=== PATIENT | female | born 1945 | race Caucasian/White ===

== ENCOUNTER → 2016-10-08 | Outpatient (REF) | payer MEDICARE ==
[~2016-10-08] MED LIST: /WARF25TA; /WARF25TA PO; ACET65TA PO; ADVI200T PO; ATEN50TA2 PO; COQ1200C2 PO; ENBR50IN4 SC; FOLI1TAB86 PO; FOSA70TA PO; GLUC500C4 PO; GLUCTAB64 PO; METH2.5T PO; MULTIVITAMIN/IRON PO; PERC5TAB8; ULTR50TA PO
[2016-10-08 19:57] LABS: INR 2.66
== END ==
LOC: M LABDRAWC 16:30
PROVIDERS: ATTEND Physician Assistant
DX: Z51.81 Encounter for therapeutic drug level monitoring (principal); Z79.01 Long term (current) use of anticoagulants; I48.0 Paroxysmal atrial fibrillation

== ENCOUNTER → 2016-11-08 | Outpatient (REF) | payer MEDICARE ==
[2016-11-08 11:56] LABS: INR 3.17
== END ==
LOC: M LABDRAWC 11:33
PROVIDERS: ATTEND Physician Assistant
DX: Z51.81 Encounter for therapeutic drug level monitoring (principal); Z79.01 Long term (current) use of anticoagulants; I48.0 Paroxysmal atrial fibrillation

== ENCOUNTER → 2016-11-08 | Outpatient (REF) | payer MEDICARE ==
[2016-11-08 11:52] LABS: BASO % 0.3 % (0.0-1.0); EOS # 0.3 K/mm3 (0.0-0.50); EOS % 2.7 % (0.0-3.0); LARGE UNSTAINED CELL # 0.3 K/mm3 (0.0-0.4); LARGE UNSTAINED CELL % 2.6 % (0.0-4.0); LYMPH # 1.5 K/mm3 (1.5-4.5); MEAN CORPUSCULAR HEMOGLOBIN 30.9 pg (27.0-33.0); MEAN CORPUSCULAR HGB CONC 31.5 g/dl (32.0-36.5); MONO # 0.5 K/mm3 (0.0-0.8); MONO % 4.7 % (0.0-5.0); NEUTROPHILS # 7.6 K/mm3 (1.8-7.7); NEUTROPHILS % 74.7 % (36.0-66.0); PLATELET COUNT, AUTOMATED 254 k/mm3 (150-450); RED CELL DISTRIBUTION WIDTH 12.7 % (11.5-14.5); WHITE BLOOD COUNT 10.2 K/mm3 (4.0-10.0)
[2016-11-08 12:15] LABS: ALBUMIN 3.4 GM/DL (3.2-5.2); CREATININE FOR GFR 1.7 MG/DL (0.55-1.02); GLOMERULAR FILTRATION RATE 31.4 (>39)
== END ==
LOC: M LABDRAWC 11:34
PROVIDERS: ATTEND Internal Medicine Rheumatology
DX: Z51.81 Encounter for therapeutic drug level monitoring (principal); Z79.899 Other long term (current) drug therapy; M05.79 Rheumatoid arthritis with rheumatoid factor of multiple sites without organ or systems involvement; N18.3 Chronic kidney disease, stage 3 (moderate); Z79.01 Long term (current) use of anticoagulants; I48.0 Paroxysmal atrial fibrillation

== ENCOUNTER 2016-12-02 09:22 | Inpatient (IN) | payer MEDICARE ==
[~2016-12-02] VITALS: Ht 157.5 cm; Wt 62.5 kg
[2016-12-02 11:00] VITALS: BP 133/64
[2016-12-02] MEDS ORDERED: MOM 30ML SUSPENSION UDC PO PRN (11:15)
[2016-12-02] MEDS ORDERED: MIRALAX *UNIT DOSE* 17GM PACKET PO PRN (11:15)
[2016-12-02] MEDS ORDERED: AMIO20TA PO (12:02)
[2016-12-02] MEDS ORDERED: TORS10TA3 PO (12:02)
[2016-12-02] MEDS ORDERED: ALEN70TA39 PO (12:02)
[2016-12-02] MEDS ORDERED: ACET500C PO (12:02)
[2016-12-02] MEDS ORDERED: ASPI81TA13 PO (12:02)
[2016-12-02] MEDS ORDERED: FISH100049 PO (12:02)
[2016-12-02] MEDS ORDERED: BISO5TAB5 PO (12:02)
[2016-12-02] MEDS ORDERED: HAIRTAB5 PO (12:02)
[2016-12-02] MEDS ORDERED: CALC600T71 PO (12:02)
[2016-12-02] MEDS ORDERED: ENBR50IN2 SC (12:02)
--- NOTE | 2016-12-02 12:48 | HPEPDOC ---
Pot Washer Note ADMISSION H&P + KENJI DATE OF ADMISSION: 12/02/2016 DATE OF SERVICE: 12/02/2016 IDENTIFICATION STATEMENT: Patient is a 71-year-old woman with intraparenchymal acute hemorrhage within the left insular cortex and left temporal lobe, global aphasia and right sided tremor admitted for comprehensive integrated inpatient rehabilitation. Thereve been no significant changes in the patients condition since the preadmission screening. [Note: History obtained with the assistance of secondary to patients language deficits] HISTORY OF PRESENT ILLNESS: Patient is a 71-year-old woman with multiple medical comorbidities including paroxysmal atrial fibrillation on anticoagulation who was admitted to outside hospital on 11/24/2016 with aphasia and right sided shaking. Per the patients , the patient had sustained a fall in her home approximately one week or earlier on a Friday. She had gotten out of bed around 6 AM to check the weather and tripped over an area rug. She was eventually helped back to bed by her . Her complaints at the time or left knee pain. Approximately one week later on a Friday she began experiencing a tremor along with a headache, and by the following days her symptoms had to progress to aphasia. The patients brought her to [facility] where CT of the head revealed left temporo-parietal hemorrhage with mass effect and surrounding edema. She was transferred to [facility] for higher level of care. Patient was supratherapeutic with an INR of 4.06. She received K Centra, vitamin K for anticoagulation reversal. CT angiogram was done and revealed large basilar tip aneurysm. On 11/25/2016 she underwent digital subtraction angiography. EEG was also performed and showed focal left frontal slowing, no epileptiform discharges. Swallowing evaluation was done and patient was placed on a dental soft, nectar thick diet. Radiographs of the hips and knee were done and negative. Urinalysis on 11/25/2016 revealed beta- hemolytic lytic strap for which she was started on IV Zosyn which was changed to Flex based on culture results. Due to persistent functional deficits, patient underwent a PMNR consultation recommendation was for acute rehabilitation. On 12/02/2016, patient was deemed stable for discharge to [facility] inpatient rehabilitation unit. PAST MEDICAL HISTORY: Congestive heart failure (ejection fracture 30%) COPD Dilated cardiomyopathy Left bundle branch block Left atrial thrombus Anemia Anxiety Mitral valve prophylaxis Osteoporosis Paroxysmal atrial fibrillation Patent foramen ovale Rheumatoid arthritis PAST SURGICAL HISTORY: Bilateral total knee replacements Pacemaker placement ALLERGIES: Morphine leads to nausea and vomiting MEDICATIONS: Acetaminophen 1000 mg every 6 hours as needed for pain Fosamax 70 mg every Friday Amiodarone 200 mg daily Aspirin Ecotrin coated 81 mg daily Biotin 5000 g daily Zebeta 7.5 mg daily Calcium 500 mg daily Enbrel 50 mg once a week Fish oil 1000 mg capsules, 2 capsules daily Demadex 10 mg daily SOCIAL HISTORY: Patient has a history of smoking 1 pack a day for approximately 20 years and quit in 1982. She has a history of social alcohol use but stopped in the . All others no history of illicit drug use, past or present. She lives with her in a one-story house, there are 4 steps to enter. All she didnt drive because she never got her drivers license Review of Systems: General: no chills, +fatigue, no weight changes. Eyes: + bifocals. Ears, Nose & Throat: no sore throat, decreased hearing or nasal discharge. Cardiovascular: +episodic LL edema; no chest pain, claudication. Pul : no cough, SOB. GI: no abdominal pain, GERD, N/V. Genitourinary: + frequency. Gynecological:no vaginal bleeding. Musculoskeletal: +chronic left knee, left wrist pain and swelling; Neurological: no numbness, paresthesias. Hematological: anticoagulation for PAF, held 2nd hemmorhage. Skin: no rashes. Psychiatric: no behavioral issues. VITAL SIGNS: 98.6F, pulse of 73, respiratory rate of 18, blood pressure 133/64 , 100% saturation on room air PHYSICAL EXAMINATION: GENERAL: Well nourished, well developed, sitting up in bed, no acute distress. HEENT: Normocephalic, atraumatic. No facial droop. No jugular venous distention (JVD). PERRL, EOMI CARDIOVASCULAR: S1, S2, irregular rate. No lower limb edema. Positive diffuse tenderness left lower limb. LUNGS: Crackles approximately one third up bilaterally, no wheezing or rhonchi ABDOMEN: Soft, nontender, nondistended. Normoactive bowel sounds throughout. MUSCULOSKELETAL: Bruise on the left cheek and left knee (healing). Mild swelling left wrist, nontender. NEUROLOGICAL: Alert. Not know the name of the town she comes from nor the town where she is now. Able to follow commands, but sometimes requires cueing to complete task. Speech episodically fluent. Anomia. Manual muscle testin/5 strength bilateral upper and lower limbs in all major muscle groups with the exception of the left lower limb 3/5 left hip flexors 4/5 left knee extension ( may be give way). Sensation: Intact to soft touch bilateral upper and lower limbs. Deep tendon reflexes: 2+ biceps bilaterally, trace patellar bilaterally. Finger to nose within normal limits but sometimes requires verbal cueing to complete tasks SKIN: Well-healed surgical scars bilateral knees. LABORATORY DATA: None available IMAGING: CT of the head on 11/24/2016: Intraparenchymal acute hemorrhage within the left insular cortex in the left temporal lobe with associated mass effect, sulcal effacement, vasogenic edema and right with midline shift. Hyperdensity within the atrium of the left lateral ventricle, suggestive of intraventricular extension of the intraparenchymal hemorrhage. CTA of the head: Basilar artery tip aneurysm. CTA of the neck: No evidence of dissection or significant stenosis. Thyroid nodule as mentioned above. Correlation with part patients symptoms and lab values is recommended. If clinically indicated, non-emergent ultrasound of the thyroid Be obtained. 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 No arteriovenous malformation or aneurysm in the left temporal lobe at the site of the hemorrhage. X-ray of the knee 11/25/2016: Left knee replacement without evidence of fracture or loosening. If the patients symptoms persist, follow up radiograph in 7-10 days may be helpful to further evaluate. Echocardiogram 11/25/2015 estimated left ventricular ejection fraction 30-35% FUNCTIONAL STATUS: Premorbid: Independent with ADLs and ambulation. No limitations/deficits in speech and cognition. ASSESSMENT AND PLAN: 1. Left temporal parietal hemorrhage with mass effect resulting in global aphasia and left-sided shaking impacting mobility, ADLs and language: Per the patients , who were for comprehensive and speech has gotten significantly better since onset of the injury. He reports her shaking is intermittent and has remained approximately stable. Patient will undergo thorough physical and occupational and speech therapy evaluations followed by daily intensive therapy. Rehabilitation nursing for bladder, bowel and medication management. 2. Paroxysmal atrial fibrillation: Patients anticoagulation has been stopped secondary to her hemorrhage. Will continue her on aspirin. Per the discharge summary anticoagulants of should not be restarted until December 23. Well provide patient with a follow-up appointment with her game engineer after discharge. She is currently rate controlled will continue patient on amiodarone & b-regina. 3. Congestive heart failure: Patient currently with bibasilar crackles, but no evidence of respiratory distress. Maintain patient on Demadex current dose. Continue B-regina. Daily weights. Adjustments as indicated. 4. Rheumatoid arthritis: instructed to bring in Enbrel from home as it is not on the formulary. Once received will provide to the pharmacy for review. 5. Atrial thrombus: Continue aspirin 6. Pain: Maintain patient on extra strength Tylenol on an as-needed basis. We ll provide intermittent nice to the left knee. If symptoms persist will obtain a follow-up x-ray. 7. Diet/nutrition: Will obtain prealbumin with morning labs. Will continue mechanical soft, thin liquids per discharge summary. Nutritional supplements as needed. POST ADMISSION PHYSICIAN EVALUATION: On evaluation of the patient today there' ve been no significant medical issues or functional changes as compared to those noted in the preadmission screening document. This patient's inpatient rehabilitation remains necessary in light of the above conditions. The patient' s medical condition requires specialized care with physicians specially trained in physical medicine rehabilitation. The patient is capable motivated to participate in a minimum of 3 hours of therapy daily, 5 days minimum per week, and requires intensive inpatient rehabilitation to improve their functional status so that they can be safely to discharge back to their home. PROGNOSIS: Good ESTIMATED LENGTH OF STAY: 10 days. / Vital Signs Vital Sign - Last 24 Hours 12/02/16 11:00 Temp 98.6 Pulse 73 Resp 18 B/P 133/64 Pulse Ox 100 O2 Delivery Room Air Home Medications Scheduled (Hair/Skin/Nails) 1 Tab Tab 1 TAB PO DAILY (Reported) Alendronate Sodium (Alendronate Sodium) 70 Mg Tab 70 MG PO QWEEK (Reported) TUESDAYS Amiodarone HCl (Amiodarone HCl) 200 Mg Tab 200 MG PO DAILY (Reported) Aspirin (Aspirin EC) 81 Mg Tab 81 MG PO DAILY (Reported) Bisoprolol Fumarate (Bisoprolol Fumarate) 5 Mg Tab 7.5 MG PO DAILY (Reported) Calcium/Vitamin D (Calcium Carbonate/D3 600-400 mg-Unit) 1 Tab Tab 1 TAB PO BID (Reported) Etanercept (Enbrel) 50 Mg/Ml Inj 50 MG SC QWEEK (Reported) TUESDAYS Fish Oil (Fish Oil 1000 mg) 1 Cap Cap 2 CAP PO DAILY (Reported) Torsemide (Torsemide) 10 Mg Tab 10 MG PO DAILY (Reported) Scheduled PRN (Acetaminophen) 500 Mg Cap 500 MG PO Q6H PRN PRN PAIN (Reported) Allergies Coded Allergies: Morphine (Unverified Adverse Reaction, Mild, NAUSEA,GI UPSET, 02/07/14) GINO FAJARDO MD Dec 02, 2016 12:48
[2016-12-02] MEDS: DOCUSATE SODIUM 100 MG CAP PO SCH ×2 (13:01→21:00)
[2016-12-02 14:00] VITALS: BP 133/66
[2016-12-02] MEDS ORDERED: LORazepam 2 MG/ML VIAL (J2060) IM STA ×4 (15:19→18:40)
[2016-12-02 16:02] VITALS: BP 158/82
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
[2016-12-02] MEDS ORDERED: LORazepam 2 MG/ML VIAL (J2060) IV PRN (17:00)
[2016-12-02] MEDS ORDERED: LORazepam 2 MG/ML VIAL (J2060) IM PRN (20:15)
[2016-12-02] MEDS ORDERED: diphenhydrAMINE 25 MG CAP PO PRN (21:00)
[2016-12-02] MEDS: SENNA 8.6 MG TAB (SENOKOT) PO SCH (21:00)
--- NOTE | 2016-12-02 21:01 | IPNPDOC ---
Subjective Date Seen The patient was seen on 12/02/16. Subjective Chief Complaint/HPI The patient is a 71-year-old female admitted with a reason for visit of Intercranial Hemorrhage. Events since last encounter Dr LIM's Patient asked to evaluate the patient for agitation . Patient was transferred today from [facility] neurology where she was admitted from nov 24 to dec 02 for intracerebral hemorrhage. At around 3 pm she became very agitated throwing things, refusing to be examined ,using foul language where before patient was speaking only 1 or 2 words after her stroke. Saying she wants to go home , done with all treatments. Patient had a urgent ct scan ordered which initially she refused ultimately we were able to calm her down enough with 3 mg of ativan to get it done. New ct scan did not show any worsening of the bleed or new bleed or any other new acute intracerebral abnormalities. Patient does have a known 6 mm cerebral aneurysm. Objective Physical Examination General Exam: Positive: No Acute Distress, Other (somnolent but easily arousable after ativan) ENT Exam: Positive: Atraumatic, Mucous membr. moist/pink, Pharynx Normal Neck Exam: Positive: Supple, Negative: JVD, thyromegaly Chest Exam: Positive: Clear to auscultation, Normal air movement Heart Exam: Positive: Normal S1, Normal S2, Rate Normal, Regular Rhythm, Negative: Murmurs, Rubs Abdomen Exam: Positive: Normal bowel sounds, Soft, Negative: Hepatospenomegaly, Tenderness Extremity Exam: Positive: Normal pulses, Negative: Clubbing, Cyanosis, Edema Skin Exam: Positive: Nl turgor and temperature, Negative: Breakdown, Rash Assessment /Plan Problems (1) Agitation Status: Acute Problem Text: CT head today did not show any new bleed or increased bleed. UA not yet available however patient was treated with zosyn followed by ceflex at [facility] which finished yesterday. possibly acute anxiety vs hospital psychosis . pateint does have langauage impairment and cognitive impairmen from her recent stroke. At present pateint calmed down with ativan will place the pateint on benadryl prn for anxiety and agitation Dr Lim's group to follow her from tomorrow. (2) Systolic CHF Status: Chronic Problem Text: from dilated cardiomyopathy has AICD in place not in any acute exacerbation at present. (3) Cardiomyopathy Status: Chronic Problem Text: dilated cardiomyopathy will continue all current medications. (4) Intraparenchymal hemorrhage of brain Status: Acute Problem Text: stable, started on ASA yesterday from [facility], coumadin to be held for now. (5) Basilar artery aneurysm Status: Chronic Problem Text: to follow up with neurosurgery after rehab is completed (6) Mitral valve prolapse Status: Chronic Response to Treatment: Stable (7) Mitral regurgitation Status: Chronic Response to Treatment: Stable (8) Anxiety Status: Chronic Problem Text: had acute agitation and anxiety today will give patient benadryl prn and ativan prn. (9) Paroxysmal atrial tachycardia Status: Chronic (10) Left atrial thrombus Status: Chronic Problem Text: used to be on coumadin , now on hold due to acute ICH (11) COPD (chronic obstructive pulmonary disease) Status: Chronic (12) Rheumatoid arthritis Status: Chronic Plan/VTE VTE Prophylaxis Ordered?: Yes VS, I&O, 24H, Fishbone Vital Signs/I&O Vital Signs Date Time Temp Pulse Resp B/P Pulse Ox O2 Delivery O2 Flow Rate FiO2 12/02/16 20:00 69 97 12/02/16 16:02 158/82 12/02/16 14:00 99.6 18 Room Air KENNEDI BURGOS MD Dec 02, 2016 20:35
[2016-12-03 06:22] VITALS: BP 115/63
--- NOTE | 2016-12-03 06:46 | REP ---
Noncontrast emergency brain CT. History: Change in mental status. Evaluation for recurrent intracranial hemorrhage. Comparison is made with report of prior head CT examinations from [facility] dated November 24, 2016 and from [facility] from November 24, 2016 and November 25, 2016. Prior CT studies demonstrated a 38 x 25 mm hemorrhage surrounded by vasogenic edema and mass effect in the left insular and temporal lobes with a 9 mm parenchymal hemorrhage in the left frontal lobe. A 3 mm left to right midline shift was described. Hyperdense blood products were described in the left lateral ventricle and in the third ventricle on those prior studies. Also noted on CT angiography by report was an 8 mm distal basilar artery douglas aneurysm. CT findings: Bony calvarium is intact. Paranasal sinuses are clear. Vascular calcification is again noted in the carotid siphons. There is diffuse mild intracranial atrophy. A 3.9 cm hemorrhage is again seen in the left temporal lobe with ill-defined edges consistent with a resolving intraparenchymal hemorrhage. There is surrounding vasogenic edema effacing the body of the lateral ventricle on the left. The temporal horn of the left lateral ventricle is somewhat dilated measuring 10 mm in anteroposterior dimension on the left compared to 3-4 mm on the right. No frontal lobe hemorrhage is visible. There is no evidence of intraventricular hemorrhage today. There is still a 2-3 mm shift of the midline to the right at the level of the third ventricle. This was previously described. No new hemorrhage is seen. There is no evidence of subarachnoid or subdural or epidural hematoma. Impression: In comparison with outside prior reports, there is no evidence of new intracranial abnormality. There is some dilation of the temporal tip of the left lateral ventricle which was not previously described. This could conceivably be a new finding. Other previously described findings have resolved. Findings were reviewed at the workstation with the ordering physician. Signed by Peng Lay MD 12/03/2016 08:30 A
[2016-12-03] MEDS ORDERED: ALENDRONATE 70 MG TABLET (FOSAMAX) PO SCH (07:00)
[2016-12-03 07:07] LABS: BASO # 0.1 K/mm3 (0.0-0.2); BASO % 0.6 % (0.0-1.0); EOS # 0.3 K/mm3 (0.0-0.50); LARGE UNSTAINED CELL # 0.3 K/mm3 (0.0-0.4); LARGE UNSTAINED CELL % 3.3 % (0.0-4.0); LYMPH # 2.1 K/mm3 (1.5-4.5); LYMPH % 18.2 % (24.0-44.0); MEAN CORPUSCULAR HEMOGLOBIN 31.7 pg (27.0-33.0); MEAN CORPUSCULAR HGB CONC 32.7 g/dl (32.0-36.5); MEAN CORPUSCULAR VOLUME 96.8 fl (80.0-96.0); MONO # 0.7 K/mm3 (0.0-0.8); MONO % 7.5 % (0.0-5.0); NEUTROPHILS # 6.5 K/mm3 (1.8-7.7); NEUTROPHILS % 67.3 % (36.0-66.0); PLATELET COUNT, AUTOMATED 261 k/mm3 (150-450); RED CELL DISTRIBUTION WIDTH 13.7 % (11.5-14.5); WHITE BLOOD COUNT 9.6 K/mm3 (4.0-10.0)
[2016-12-03 07:14] LABS: CALCIUM LEVEL 8.5 MG/DL (8.8-10.2); CREATININE FOR GFR 1.69 MG/DL (0.55-1.02); GLOMERULAR FILTRATION RATE 31.6 (>39)
[2016-12-03 07:26] LABS: POTASSIUM SERUM 2.7 MEQ/L (3.5-5.1)
[2016-12-03] MEDS ORDERED: POTASSIUM CHLORIDE 10 MEQ SR TABLET PO ONE ×2 (08:00→16:00)
[2016-12-03] MEDS: CALCIUM/VITAMIN D 500 MG TAB PO SCH (08:12)
[2016-12-03] MEDS: ASPIRIN 81 MG ENTERIC TAB PO SCH (08:12)
[2016-12-03] MEDS: AMIODARONE 200 MG TAB (PACERONE) PO SCH (08:12)
[2016-12-03] MEDS: BISOPROLOL FUMARATE 5 MG TAB PO SCH (08:13)
[2016-12-03] MEDS: DOCUSATE SODIUM 100 MG CAP PO SCH ×2 (08:13→20:47)
[2016-12-03] MEDS: TORSEMIDE 10 MG TABLET PO SCH (08:13)
[2016-12-03] MEDS ORDERED: ETANERCEPT 50 MG/ML SQ SCH (09:00)
[2016-12-03] MEDS: FLUoxetine 20 MG CAP PO SCH (09:58)
[2016-12-03 14:00] VITALS: BP 115/58
--- NOTE | 2016-12-03 14:49 | IPNPDOC ---
Subjective Date Seen The patient was seen on 12/03/16. Subjective Chief Complaint/HPI The patient is a 71-year-old female admitted with a reason for visit of Intercranial Hemorrhage. Events since last encounter Back to baseline per and nursing staff. Participating in rehab, active, no recurrence of delirium. General: Reports: ROS Unobtainable Objective Physical Examination General Exam: Positive: No Acute Distress, Other (somnolent but easily arousable after ativan) ENT Exam: Positive: Atraumatic, Mucous membr. moist/pink, Pharynx Normal Neck Exam: Positive: Supple, Negative: JVD, thyromegaly Chest Exam: Positive: Clear to auscultation, Normal air movement Heart Exam: Positive: Normal S1, Normal S2, Rate Normal, Regular Rhythm, Negative: Murmurs, Rubs Abdomen Exam: Positive: Normal bowel sounds, Soft, Negative: Hepatospenomegaly, Tenderness Extremity Exam: Positive: Normal pulses, Negative: Clubbing, Cyanosis, Edema Skin Exam: Positive: Nl turgor and temperature, Negative: Breakdown, Rash Assessment /Plan Problems (1) Agitation Status: Acute Problem Text: Acute onset delirium likely related to change in scenery/ unfamiliarity. DC benadryl, shes on class III antiarrhythmic so antipsychotics are c/i. Will continue c IV BDZ PRN. Prozac has been started by primary team CT head today did not show any new bleed or increased bleed. JFW-- pt back to baseline mental status. Agree with d/c benadryl. Potassium addressed. Call if needed (2) Hypokalemia Status: Acute Problem Text: c normal Mg. This appears to have been repleted c repeat labs in AM (3) Systolic CHF Status: Chronic Problem Text: from dilated cardiomyopathy has AICD in place not in any acute exacerbation at present. (4) Cardiomyopathy Status: Chronic Problem Text: dilated cardiomyopathy will continue all current medications. (5) Intraparenchymal hemorrhage of brain Status: Acute Problem Text: stable, started on ASA yesterday from [facility], coumadin to be held for now. (6) Basilar artery aneurysm Status: Chronic Problem Text: to follow up with neurosurgery after rehab is completed (7) Mitral valve prolapse Status: Chronic Response to Treatment: Stable (8) Mitral regurgitation Status: Chronic Response to Treatment: Stable (9) Anxiety Status: Chronic Problem Text: Prozac, lorazepam as needed. (10) Paroxysmal atrial tachycardia Status: Chronic Problem Text: Off anticoagulation until 12/25 for acute ICH (11) Left atrial thrombus Status: Chronic Problem Text: used to be on coumadin , now on hold due to acute ICH Plan/VTE VTE Prophylaxis Ordered?: Yes VS, I&O, 24H, Fishbone Vital Signs/I&O Vital Signs Date Time Temp Pulse Resp B/P Pulse Ox O2 Delivery O2 Flow Rate FiO2 12/03/16 14:00 97.5 94 18 115/58 96 Room Air I&O- Last 24 Hours up to 6 AM 12/03/16 06:00 Intake Total 360 ml Balance 360 ml Laboratory Data 24H LABS Laboratory Tests 2 12/03/16 06:40: Anion Gap 11, White Blood Count 9.6, Red Blood Count 3.07L, Hemoglobin 9.7L, Hematocrit 29.7L, Mean Corpuscular Volume 96.8H, Mean Corpuscular Hemoglobin 31.7, Mean Corpuscular Hemoglobin Concent 32.7, Red Cell Distribution Width 13.7 , Platelet Count 261, Neutrophils (%) (Auto) 67.3H, Lymphocytes (%) (Auto) 18.2L , Monocytes (%) (Auto) 7.5H, Eosinophils (%) (Auto) 3.0, Basophils (%) (Auto) 0.6, Neutrophils # (Auto) 6.5, Lymphocytes # (Auto) 2.1, Monocytes # (Auto) 0.7 , Eosinophils # (Auto) 0.3, Basophils # (Auto) 0.1, Blood Urea Nitrogen 30H, Creatinine 1.69H, Sodium Level 144, Potassium Level 2.7*L, Chloride Level 105, Carbon Dioxide Level 28, Calcium Level 8.5L, Glomerular Filtration Rate 31.6L, Large Unclassified Cells # 0.3, Large Unclassified Cells % 3.3, Magnesium Level 2.0, Prealbumin 31.2 CBC/BMP Laboratory Tests 12/03/16 06:40 Calcium Level 8.5 L, Red Blood Count 3.07 L, Mean Corpuscular Volume 96.8 H, Mean Corpuscular Hemoglobin 31.7, Mean Corpuscular Hemoglobin Concent 32.7, Red Cell Distribution Width 13.7, Neutrophils (%) (Auto) 67.3 H, Lymphocytes (%) ( Auto) 18.2 L, Monocytes (%) (Auto) 7.5 H, Eosinophils (%) (Auto) 3.0, Basophils (%) (Auto) 0.6, Neutrophils # (Auto) 6.5, Lymphocytes # (Auto) 2.1, Monocytes # (Auto) 0.7, Eosinophils # (Auto) 0.3, Basophils # (Auto) 0.1 CELSO JAIME DO Dec 03, 2016 14:49 José Mccabe MD Dec 03, 2016 16:06
[2016-12-03] MEDS: LIDOCAINE 5% (LIDODERM) PATCH TD SCH (15:38)
--- NOTE | 2016-12-03 15:38 | IPNPDOC ---
Finance Attorney Progress Note PROGRESS NOTE DATE OF ADMISSION: 12/02/2016 DATE OF SERVICE: 12/03/2016 IDENTIFICATION STATEMENT: Patient is a 71-year-old woman with intraparenchymal acute hemorrhage within the left insular cortex and left temporal lobe, global aphasia and right sided tremor admitted for comprehensive integrated inpatient rehabilitation. PAST MEDICAL HISTORY: Congestive heart failure (ejection fracture 30%) COPD Dilated cardiomyopathy Left bundle branch block Left atrial thrombus Anemia Anxiety Mitral valve prophylaxis Osteoporosis Paroxysmal atrial fibrillation Patent foramen ovale Rheumatoid arthritis PAST SURGICAL HISTORY: Bilateral total knee replacements Pacemaker placement ALLERGIES: Morphine leads to nausea and vomiting MEDICATIONS: Acetaminophen 1000 mg every 6 hours as needed for pain Fosamax 70 mg every Friday Amiodarone 200 mg daily Aspirin Ecotrin coated 81 mg daily Zebeta 7.5 mg daily Calcium 500 mg daily Enbrel 50 mg once a week Demadex 10 mg daily SUBJECTIVE: Patient reports feeling tired this morning, but no specific complaints. Doesnt recall events of last evening. Understands that shes here to do therapy. No specific complaints. Knee hurts, but less than it did before. VITAL SIGNS: 98.9F, pulse of 77, respiratory rate of 18, blood pressure 115/63 , 99% saturation on room air PHYSICAL EXAMINATION: GENERAL: Well nourished, well developed, sitting up in bed, no acute distress, calm. HEENT: Normocephalic, atraumatic. No facial droop. No jugular venous distention (JVD). PERRL, EOMI CARDIOVASCULAR: S1, S2, irregular rate. No lower limb edema. Non- tenderness left knee. LUNGS: Crackles approximately one third up bilaterally (unchanged), no wheezing or rhonchi ABDOMEN: Soft, nontender, nondistended. Normoactive bowel sounds throughout. MUSCULOSKELETAL: Bruise on the left cheek and left knee (healing). Mild swelling left wrist, nontender. NEUROLOGICAL: Alert to person. Knows her and daughter. Speech episodically fluent. Anomia. MMT: 5/5 strength bilateral upper and lower limbs in all major muscle groups with the exception of the left lower limb 3/5 left hip flexors 4/5 left knee extension (may be give way). SKIN: Well-healed surgical scars bilateral knees. LABORATORY DATA: 12/03/16: reviewed see below IMAGING: CT of the head on 11/24/2016: Intraparenchymal acute hemorrhage within the left insular cortex in the left temporal lobe with associated mass effect, sulcal effacement, vasogenic edema and right with midline shift. Hyperdensity within the atrium of the left lateral ventricle, suggestive of intraventricular extension of the intraparenchymal hemorrhage. CTA of the head: Basilar artery tip aneurysm. CTA of the neck: No evidence of dissection or significant stenosis. Thyroid nodule as mentioned above. Correlation with part patients symptoms and lab values is recommended. If clinically indicated, non-emergent ultrasound of the thyroid Be obtained. 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 No arteriovenous malformation or aneurysm in the left temporal lobe at the site of the hemorrhage. X-ray of the knee 11/25/2016: Left knee replacement without evidence of fracture or loosening. If the patients symptoms persist, follow up radiograph in 7-10 days may be helpful to further evaluate. Echocardiogram 11/25/2015 estimated left ventricular ejection fraction 30-35% FUNCTIONAL STATUS: Premorbid: Independent with ADLs and ambulation. No limitations/deficits in speech and cognition. ASSESSMENT AND PLAN: 1. Left temporal parietal hemorrhage with mass effect resulting in global aphasia and left-sided shaking impacting mobility, ADLs and language: Patient had extended period of agitation last evening which has since resolved (see below). Continue daily therapies. Rehabilitation nursing for bladder, bowel and medication management. 2. Agitation: Etiology unclear. Resolved with Ativan. CT head w/o new findings. Question , but cant give Seroquel 2nd on amiodarone. F/u UCx which was ordered yesterday but not yet collected. Ativan is ordered prn if recurs. D/ cd Benadryl due to concerns to exacerbate agitation/confusion. 3. Hypokalemia: replete and recheck 4. ROSSANA: BS to eval for retention. F/u urine cx. Obtain labs from [facility] for baseline 5. Knee pain: XR from [facility] w/y fx. Symptomatic relief with ice and Lidoderm patch. Reimage if persists. 6. Paroxysmal atrial fibrillation: Continue aspirin. Per the discharge summary anticoagulants of should not be restarted until December 23. Follow-up appointment with her industrial illuminating engineer after discharge. Continue patient on amiodarone & B- regina. 7. Congestive heart failure: No evidence of respiratory distress. Maintain patient on Demadex current dose at this time. Continue B-regina. Daily weights. Adjustments as indicated. 8. Rheumatoid arthritis: Enbrel qweek 9. Atrial thrombus: Continue aspirin 10. Diet/nutrition: Prealbumin wnl. Continue mechanical soft, thin liquids per discharge summary. / Vital Signs Vital Sign - Last 24 Hours 12/02/16 12/02/16 12/03/16 12/03/16 16:02 20:00 06:00 06:22 Temp 98.9 Pulse 72 69 77 Resp 18 B/P 158/82 115/63 Pulse Ox 97 99 O2 Delivery Room Air Room Air 12/03/16 12/03/16 12/03/16 08:13 09:00 14:00 Temp 97.5 Pulse 77 94 Resp 18 B/P 115/63 115/58 Pulse Ox 96 O2 Delivery Room Air Room Air Laboratory Data CBC/BMP Laboratory Tests 12/03/16 06:40 Calcium Level 8.5 L, Red Blood Count 3.07 L, Mean Corpuscular Volume 96.8 H, Mean Corpuscular Hemoglobin 31.7, Mean Corpuscular Hemoglobin Concent 32.7, Red Cell Distribution Width 13.7, Neutrophils (%) (Auto) 67.3 H, Lymphocytes (%) ( Auto) 18.2 L, Monocytes (%) (Auto) 7.5 H, Eosinophils (%) (Auto) 3.0, Basophils (%) (Auto) 0.6, Neutrophils # (Auto) 6.5, Lymphocytes # (Auto) 2.1, Monocytes # (Auto) 0.7, Eosinophils # (Auto) 0.3, Basophils # (Auto) 0.1 Labs 24H Laboratory Tests 2 12/03/16 06:40: Anion Gap 11, White Blood Count 9.6, Red Blood Count 3.07L, Hemoglobin 9.7L, Hematocrit 29.7L, Mean Corpuscular Volume 96.8H, Mean Corpuscular Hemoglobin 31.7, Mean Corpuscular Hemoglobin Concent 32.7, Red Cell Distribution Width 13.7 , Platelet Count 261, Neutrophils (%) (Auto) 67.3H, Lymphocytes (%) (Auto) 18.2L , Monocytes (%) (Auto) 7.5H, Eosinophils (%) (Auto) 3.0, Basophils (%) (Auto) 0.6, Neutrophils # (Auto) 6.5, Lymphocytes # (Auto) 2.1, Monocytes # (Auto) 0.7 , Eosinophils # (Auto) 0.3, Basophils # (Auto) 0.1, Blood Urea Nitrogen 30H, Creatinine 1.69H, Sodium Level 144, Potassium Level 2.7*L, Chloride Level 105, Carbon Dioxide Level 28, Calcium Level 8.5L, Glomerular Filtration Rate 31.6L, Large Unclassified Cells # 0.3, Large Unclassified Cells % 3.3, Magnesium Level 2.0, Prealbumin 31.2 Allergies Allergies: Coded Allergies: Morphine (Unverified Adverse Reaction, Mild, NAUSEA,GI UPSET, 02/07/14) Current Medications Current Medications Current Medications Acetaminophen (Tylenol Tab) 1,000 mg Q6HP PRN PO PAIN; Start 12/02/16 at 11:15 ; Stop 01/01/17 at 11:14 Alendronate Sodium (Fosamax) 70 mg Tu@07 PO Last administered on 12/03/16 08: 12; Start 12/03/16 at 07:00; Stop 01/02/17 at 06:59 Amiodarone HCl (Pacerone, Cordarone) 200 mg DAILY PO Last administered on 08:12; Start 12/03/16 at 09:00; Stop 01/02/17 at 08:59 Aspirin (Ecotrin) 81 mg DAILY PO Last administered on 12/03/16 08:12; Start at 09:00; Stop 01/02/17 at 08:59 Bisoprolol Fumarate (Zebeta) 7.5 mg DAILY PO Last administered on 12/03/16 08: 13; Start 12/03/16 at 09:00; Stop 01/02/17 at 08:59 Calcium/Vitamin D (Oscal D) 500 mg DAILY PO Last administered on 12/03/16 08: 12; Start 12/03/16 at 09:00; Stop 01/02/17 at 08:59 Diphenhydramine HCl (Benadryl) 25 mg TIDP PRN PO agitation; Start 12/02/16 at 21:00; Stop 12/03/16 at 09:08; Status DC Docusate Sodium (Colace) 100 mg BID PO Last administered on 12/03/16 08:13; Start 12/02/16 at 09:00; Stop 01/01/17 at 08:59 Fluoxetine HCl (PROzac) 20 mg DAILY PO Last administered on 12/03/16 09:58; Start 12/03/16 at 09:00; Stop 01/02/17 at 08:59 Home Med (Med Rec Complete!) ASDIRECTED XX ; Start 12/02/16 at 12:15; Stop at 12:15; Status DC Lidocaine (Lidoderm Patch) 1 patch DAILY TD ; Start 12/03/16 at 09:00; Stop at 08:59 Lorazepam (Ativan) 0.5 mg Q6HP PRN IM AGITATION; Start 12/02/16 at 20:15; Stop 12/09/16 at 16:59 Lorazepam (Ativan) 0.5 mg Q6HP PRN IV AGITATION; Start 12/02/16 at 17:00; Stop 12/02/16 at 20:05; Status DC Magnesium Hydroxide (Milk Of Magnesia) 30 ml DAILYPRN PRN PO CONSTIPATION; Start 12/02/16 at 11:15; Stop 01/01/17 at 11:14 Miscellaneous (Unresolved Patient Own Med Order) SEE LABEL COMMENTS UNRESOLVED XX ; Start 12/03/16 at 00:01; Stop 01/02/17 at 00:00 Non-Formulary Medication ( See Comment Field Below ) REMOVE LIDODERM PATCH DAILY@21 XX ; Start 12/03/16 at 21:00; Stop 01/02/17 at 20:59 Patient Own Medication (Patient'S Own Med) 50 ea Q7D SQ ; Start 12/03/16 at 12: 00; Stop 01/02/17 at 11:59; Status UNV Polyethylene Glycol (Miralax) 1 pkt DAILY PRN PO CONSTIPATION; Start 12/02/16 at 11:15; Stop 01/01/17 at 11:14 Senna (Senokot) 1 tab QHS PO ; Start 12/02/16 at 21:00; Stop 01/01/17 at 20:59 Torsemide (Demadex) 10 mg DAILY PO Last administered on 12/03/16 08:13; Start 12/03/16 at 09:00; Stop 01/02/17 at 08:59 GINO FAJARDO MD Dec 03, 2016 15:38
[2016-12-03] MEDS ORDERED: LORazepam 2 MG/ML VIAL (J2060) IV PRN (18:45)
[2016-12-03] MEDS ORDERED: HALOPERIDOL 5 MG/ML VIAL (J1630) IV PRN (18:45)
[2016-12-03 20:00] VITALS: BP 121/58
[2016-12-03] MEDS: SENNA 8.6 MG TAB (SENOKOT) PO SCH (20:47)
[2016-12-04 06:00] VITALS: BP 144/70
[2016-12-04 07:27] LABS: BASO % 0.5 % (0.0-1.0); EOS # 0.3 K/mm3 (0.0-0.50); EOS % 3.1 % (0.0-3.0); LARGE UNSTAINED CELL # 0.4 K/mm3 (0.0-0.4); LARGE UNSTAINED CELL % 4.3 % (0.0-4.0); LYMPH # 1.6 K/mm3 (1.5-4.5); LYMPH % 16.8 % (24.0-44.0); MEAN CORPUSCULAR HEMOGLOBIN 30.7 pg (27.0-33.0); MEAN CORPUSCULAR VOLUME 95.7 fl (80.0-96.0); MONO # 0.6 K/mm3 (0.0-0.8); MONO % 5.8 % (0.0-5.0); NEUTROPHILS # 6.7 K/mm3 (1.8-7.7); NEUTROPHILS % 69.5 % (36.0-66.0); PLATELET COUNT, AUTOMATED 210 k/mm3 (150-450); RED CELL DISTRIBUTION WIDTH 13.4 % (11.5-14.5); WHITE BLOOD COUNT 9.6 K/mm3 (4.0-10.0)
[2016-12-04 07:49] LABS: CALCIUM LEVEL 8.7 MG/DL (8.8-10.2); CREATININE FOR GFR 1.74 MG/DL (0.55-1.02); GLOMERULAR FILTRATION RATE 30.5 (>39); POTASSIUM SERUM 3.5 MEQ/L (3.5-5.1)
[2016-12-04] MEDS: TORSEMIDE 10 MG TABLET PO SCH (08:53)
[2016-12-04] MEDS: AMIODARONE 200 MG TAB (PACERONE) PO SCH (08:54)
[2016-12-04] MEDS: CALCIUM/VITAMIN D 500 MG TAB PO SCH (08:54)
[2016-12-04] MEDS: ASPIRIN 81 MG ENTERIC TAB PO SCH (08:54)
[2016-12-04] MEDS: DOCUSATE SODIUM 100 MG CAP PO SCH ×2 (08:56→20:17)
[2016-12-04] MEDS: BISOPROLOL FUMARATE 5 MG TAB PO SCH (08:56)
[2016-12-04] MEDS: FLUoxetine 20 MG CAP PO SCH (08:57)
[2016-12-04] MEDS: LIDOCAINE 5% (LIDODERM) PATCH TD SCH (08:57)
[2016-12-04] MEDS ORDERED: POTASSIUM CHLORIDE 10 MEQ SR TABLET PO SCH (09:00)
--- NOTE | 2016-12-04 13:46 | IPNPDOC ---
Detention Worker Progress Note PROGRESS NOTE DATE OF ADMISSION: 12/02/2016 DATE OF SERVICE: 12/04/2016 IDENTIFICATION STATEMENT: Patient is a 71-year-old woman with intraparenchymal acute hemorrhage within the left insular cortex and left temporal lobe, global aphasia and right sided tremor admitted for comprehensive integrated inpatient rehabilitation. PAST MEDICAL HISTORY: Congestive heart failure (ejection fracture 30%) COPD Dilated cardiomyopathy Left bundle branch block Left atrial thrombus Anemia Anxiety Mitral valve prophylaxis Osteoporosis Paroxysmal atrial fibrillation Patent foramen ovale Rheumatoid arthritis PAST SURGICAL HISTORY: Bilateral total knee replacements Pacemaker placement ALLERGIES: Morphine leads to nausea and vomiting MEDICATIONS: Amiodarone 200 mg daily Aspirin EC 81 mg daily Zebeta 7.5 mg daily Prozac 20mg daily Calcium 500 mg daily Demadex 10 mg daily Acetaminophen 1000 mg every 6 hours as needed for pain Enbrel 50 mg once a week Fosamax 70 mg every Friday SUBJECTIVE: Patient states tired, offers no complaints. Knee hurts less. Answers in 2-3 words. Knee hurts. Denies CP, SOB, new weakness, C/D, dysuria VITAL SIGNS: 98.4F, pulse of 80, respiratory rate of 17, blood pressure 118/54 , 95% saturation on room air PHYSICAL EXAMINATION: GENERAL: Well nourished, well developed, sitting up in bed, no acute distress, calm. HEENT: Normocephalic, atraumatic. No facial droop. PERRL, EOMI CARDIOVASCULAR: S1, S2, irregular rate. No lower limb edema. Non- tenderness left knee. LUNGS: Bibasilar crackles (decreased), no wheezing or rhonchi ABDOMEN: Soft, nontender, nondistended. Normoactive bowel sounds throughout. MUSCULOSKELETAL: Bruise on the left cheek and left knee (healing). Mild swelling left wrist, nontender. NEUROLOGICAL: Alert to person only. Answers with 1-3 word sentences. Flat affect, disengaged. +anomia. MMT: 5/5 strength bilateral upper and lower limbs in all major muscle groups with the exception of the left lower limb 3/5 left hip flexors 4/5 left knee extension (may be give way). SKIN: Well-healed surgical scars bilateral knees. LABORATORY DATA: 12/04/16: reviewed see below IMAGING: CT of the head on 11/24/2016: Intraparenchymal acute hemorrhage within the left insular cortex in the left temporal lobe with associated mass effect, sulcal effacement, vasogenic edema and right with midline shift. Hyperdensity within the atrium of the left lateral ventricle, suggestive of intraventricular extension of the intraparenchymal hemorrhage. CTA of the head: Basilar artery tip aneurysm. CTA of the neck: No evidence of dissection or significant stenosis. Thyroid nodule as mentioned above. Correlation with part patients symptoms and lab values is recommended. If clinically indicated, non-emergent ultrasound of the thyroid Be obtained. 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 No arteriovenous malformation or aneurysm in the left temporal lobe at the site of the hemorrhage. X-ray of the knee 11/25/2016: Left knee replacement without evidence of fracture or loosening. If the patients symptoms persist, follow up radiograph in 7-10 days may be helpful to further evaluate. Echocardiogram 11/25/2015 estimated left ventricular ejection fraction 30-35% FUNCTIONAL STATUS: Premorbid: Independent with ADLs and ambulation. No limitations/deficits in speech and cognition. ASSESSMENT AND PLAN: 1. Left temporal parietal hemorrhage with mass effect resulting in global aphasia and left-sided shaking impacting mobility, ADLs and language: Patient had extended period of agitation 12/02/16 which has resolved (see below). Continue daily therapies. Rehabilitation nursing for bladder, bowel and medication management. 2. Agitation: Resolved with IM Ativan (3mg). CT head w/o new findings. F/u UCx. As previously documented in my noted from yesterday, cant use antipsychotic ( e.g. Seroquel, Haldol) 2nd being on amioderone. That is why benzo was used during acute episode 12/02/16. An order was put in for IV Haldol by resident last night unbeknownst to me, but was subsequently d/cd. Apparently he then cancelled IM order for Ativan and placed order for IV Ativan. Fortunately, the patient has not been agitated since the episode on the and did not received any the meds order by the resident. I have discontinued the Ativan since her acute episode has resolved and she has not required any sedative in over 36hrs. Nursing staff has been instructed to call me should patient become agitated again. 3. Hypokalemia: Likely 2nd Demadex. Resolved with supplementation. Given that I will be holding Demadex (see below), will hold supplementation simultaneously. Once Demadex is restarted, will restart potassium supplementation, but likely lower dose, 20 mEq. 4. ROSSANA: Obtained labs from [facility] and apparently patient has some mild baseline renal insufficiency as her BUN/urine creatinine was 23/1.3 on 12/02/16. We have done bladder scans and there is no significant retention. Urine has been sent and is rather unimpressive, although will follow-up urine culture. Given her weight deficit, she is likely prerenal so will hold Demadex for 2 days and closely monitor patients fluid/pulmonary status during this time. 5. Knee pain: XR from [facility] w/o fx. Symptoms seem to be improving. Continue intermittent ice and Lidoderm patch. Reimage if indicated. 6. Paroxysmal atrial fibrillation: Continue aspirin. Per the discharge summary, anticoagulants of should not be restarted until December 23. Follow-up appointment with her nut sheller after discharge. Continue patient on amiodarone & B- regina. 7. Congestive heart failure: No evidence of respiratory distress. Weight down since admission. As above, holding demadex for 2 days. Continue B-regina. Daily weights. Adjustments as indicated. 8. Rheumatoid arthritis: Enbrel qweek 9. Atrial thrombus: Per , this was addressed when pacemaker placed. Continue aspirin 10. Diet/nutrition: Prealbumin wnl. Continue mechanical soft, thin liquids per discharge summary. / Vital Signs Vital Sign - Last 24 Hours 12/03/16 12/03/16 12/03/16 12/04/16 14:00 20:00 20:00 06:00 Temp 97.5 98.4 98.4 Pulse 94 75 86 Resp B/P 115/58 121/58 144/70 Pulse Ox 96 96 95 O2 Delivery Room Air Room Air Room Air Room Air 12/04/16 12/04/16 08:56 09:00 Pulse 80 B/P 118/54 O2 Delivery Room Air Laboratory Data CBC/BMP Laboratory Tests 12/04/16 06:57 Calcium Level 8.7 L, Red Blood Count 2.82 L, Mean Corpuscular Volume 95.7, Mean Corpuscular Hemoglobin 30.7, Mean Corpuscular Hemoglobin Concent 32.0, Red Cell Distribution Width 13.4, Neutrophils (%) (Auto) 69.5 H, Lymphocytes (%) (Auto) 16.8 L, Monocytes (%) (Auto) 5.8 H, Eosinophils (%) (Auto) 3.1 H, Basophils (%) (Auto) 0.5, Neutrophils # (Auto) 6.7, Lymphocytes # (Auto) 1.6, Monocytes # ( Auto) 0.6, Eosinophils # (Auto) 0.3, Basophils # (Auto) 0.0 Labs 24H Laboratory Tests 2 12/04/16 06:28: Urine Amorphous Sediment , Urine Appearance HAZY, Urine Color YELLOW, Urine pH 5.0, Urine Specific [place] 1.012, Urine Protein NEGATIVE, Urine Glucose (UA) NEGATIVE, Urine Ketones NEGATIVE, Urine Urobilinogen 0.2, Urine Bilirubin NEGATIVE, Urine Leukocyte Esterase TRACEH, Urine Bacteria (Auto) 1+H, Urine Blood 2+H, Urine Calcium Carbonate Cryst(Auto) , Urine Calcium Oxalate Cryst ( Auto) , Urine Calcium Phosphate Kandi (Auto) , Urine Cellular Casts , Urine Cystine Crystals , Urine Granular Casts (Auto) , Urine Hyaline Casts (Auto) 10, Urine Leucine Crystals , Urine Mucus (Auto) SMALL, Urine Nitrite NEGATIVE, Urine Oval Fat Bodies (Auto) , Urine RBC (Auto) 2, Urine Renal Epithelial Cells , Urine Sperm (Auto) , Urine Squamous Epithelial Cells 1, Urine Transitional Epithelial Cells , Urine Trichomonas (Auto) , Urine Triple Phosphate Cryst (Auto ) , Urine Tyrosine Crystals , Urine Uric Acid Crystals (Auto) , Urine WBC (Auto ) 3, Urine Waxy Casts (Auto) , Urine Yeast-Like Cells (Auto) 12/04/16 06:57: Anion Gap 9, White Blood Count 9.6, Red Blood Count 2.82L, Hemoglobin 8.7L, Hematocrit 27.0L, Mean Corpuscular Volume 95.7, Mean Corpuscular Hemoglobin 30.7 , Mean Corpuscular Hemoglobin Concent 32.0, Red Cell Distribution Width 13.4, Platelet Count 210, Neutrophils (%) (Auto) 69.5H, Lymphocytes (%) (Auto) 16.8L, Monocytes (%) (Auto) 5.8H, Eosinophils (%) (Auto) 3.1H, Basophils (%) (Auto) 0.5 , Neutrophils # (Auto) 6.7, Lymphocytes # (Auto) 1.6, Monocytes # (Auto) 0.6, Eosinophils # (Auto) 0.3, Basophils # (Auto) 0.0, Blood Urea Nitrogen 38H, Creatinine 1.74H, Sodium Level 143, Potassium Level 3.5#, Chloride Level 108H, Carbon Dioxide Level 26, Calcium Level 8.7L, Glomerular Filtration Rate 30.5L, Large Unclassified Cells # 0.4, Large Unclassified Cells % 4.3H Microbiology Microbiology 12/04/16 Urine Culture, Received Pending Allergies Allergies: Coded Allergies: Morphine (Unverified Adverse Reaction, Mild, NAUSEA,GI UPSET, 02/07/14) Current Medications Current Medications Current Medications Acetaminophen (Tylenol Tab) 1,000 mg Q6HP PRN PO PAIN; Start 12/02/16 at 11:15 ; Stop 01/01/17 at 11:14 Alendronate Sodium (Fosamax) 70 mg Tu@07 PO Last administered on 12/03/16 08: 12; Start 12/03/16 at 07:00; Stop 01/02/17 at 06:59 Amiodarone HCl (Pacerone, Cordarone) 200 mg DAILY PO Last administered on 08:54; Start 12/03/16 at 09:00; Stop 01/02/17 at 08:59 Aspirin (Ecotrin) 81 mg DAILY PO Last administered on 12/04/16 08:54; Start at 09:00; Stop 01/02/17 at 08:59 Bisoprolol Fumarate (Zebeta) 7.5 mg DAILY PO Last administered on 12/04/16 08: 56; Start 12/03/16 at 09:00; Stop 01/02/17 at 08:59 Calcium/Vitamin D (Oscal D) 500 mg DAILY PO Last administered on 12/04/16 08:54 ; Start 12/03/16 at 09:00; Stop 01/02/17 at 08:59 Diphenhydramine HCl (Benadryl) 25 mg TIDP PRN PO agitation; Start 12/02/16 at 21:00; Stop 12/03/16 at 09:08; Status DC Docusate Sodium (Colace) 100 mg BID PO Last administered on 12/04/16 08:56; Start 12/02/16 at 09:00; Stop 01/01/17 at 08:59 Fluoxetine HCl (PROzac) 20 mg DAILY PO Last administered on 12/04/16 08:57; Start 12/03/16 at 09:00; Stop 01/02/17 at 08:59 Haloperidol (Haldol) 2 mg Q6HP PRN IV AGITATION; Start 12/03/16 at 18:45; Stop 12/03/16 at 18:45; Status DC Home Med (Med Rec Complete!) ASDIRECTED XX ; Start 12/02/16 at 12:15; Stop at 12:15; Status DC Lidocaine (Lidoderm Patch) 1 patch DAILY TD Last administered on 12/04/16 08:57 ; Start 12/03/16 at 09:00; Stop 01/02/17 at 08:59 Lorazepam (Ativan) 0.5 mg Q6HP PRN IM AGITATION; Start 12/02/16 at 20:15; Stop 12/03/16 at 18:37; Status DC Lorazepam (Ativan) 0.5 mg Q6HP PRN IV AGITATION; Start 12/02/16 at 17:00; Stop 12/02/16 at 20:05; Status DC Lorazepam (Ativan) 0.5 mg Q6HP PRN IV AGITATION; Start 12/03/16 at 18:45; Stop 12/04/16 at 09:49; Status DC Magnesium Hydroxide (Milk Of Magnesia) 30 ml DAILYPRN PRN PO CONSTIPATION; Start 12/02/16 at 11:15; Stop 01/01/17 at 11:14 Miscellaneous (Unresolved Patient Own Med Order) SEE LABEL COMMENTS UNRESOLVED XX ; Start 12/03/16 at 00:01; Stop 12/04/16 at 12:19; Status DC Non-Formulary Medication ( See Comment Field Below ) REMOVE LIDODERM PATCH DAILY@21 XX Last administered on 12/03/16 20:47; Start 12/03/16 at 21:00; Stop 01/02/17 at 20:59 Patient Own Medication (Patient'S Own Med) ENBREL 50MG/ ML AUTOINJECT... Q7D SQ Last administered on 12/03/16 18:12; Start 12/03/16 at 09:00; Stop 01/02/17 at 08:59 Polyethylene Glycol (Miralax) 1 pkt DAILY PRN PO CONSTIPATION; Start 12/02/16 at 11:15; Stop 01/01/17 at 11:14 Potassium Chloride (Micro-K Extencaps) 20 meq DAILY PO ; Start 12/05/16 at 09:00 ; Stop 01/04/17 at 08:59; Status Future hold Potassium Chloride (Micro-K Extencaps) 40 meq DAILY PO Last administered on 12/04 08:56; Start 12/04/16 at 09:00; Stop 12/04/16 at 13:28; Status DC Senna (Senokot) 1 tab BIDP PRN PO CONSTIPATION; Start 12/04/16 at 21:00; Stop at 20:59 Senna (Senokot) 1 tab QHS PO ; Start 12/02/16 at 21:00; Stop 12/04/16 at 12:17; Status DC Torsemide (Demadex) 10 mg DAILY PO Last administered on 12/04/16 08:53; Start 12/03/16 at 09:00; Stop 01/02/17 at 08:59; Status Future hold GINO FAJARDO MD Dec 04, 2016 13:46
[2016-12-04] MEDS: ACETAMINOPHEN 500 MG TAB PO PRN (13:53)
[2016-12-04 14:00] VITALS: BP 126/62
[2016-12-04 19:38] VITALS: BP 118/67
[2016-12-04] MEDS ORDERED: SENNA 8.6 MG TAB (SENOKOT) PO PRN (21:00)
[2016-12-05 06:00] VITALS: BP 120/71
[2016-12-05 07:18] LABS: BASO % 0.5 % (0.0-1.0); EOS # 0.4 K/mm3 (0.0-0.50); EOS % 4.9 % (0.0-3.0); LARGE UNSTAINED CELL # 0.4 K/mm3 (0.0-0.4); LYMPH # 1.6 K/mm3 (1.5-4.5); LYMPH % 19.3 % (24.0-44.0); MEAN CORPUSCULAR HEMOGLOBIN 31.2 pg (27.0-33.0); MEAN CORPUSCULAR HGB CONC 32.4 g/dl (32.0-36.5); MEAN CORPUSCULAR VOLUME 96.1 fl (80.0-96.0); MONO # 0.4 K/mm3 (0.0-0.8); MONO % 4.9 % (0.0-5.0); NEUTROPHILS # 5.6 K/mm3 (1.8-7.7); NEUTROPHILS % 65.4 % (36.0-66.0); PLATELET COUNT, AUTOMATED 214 k/mm3 (150-450); RED CELL DISTRIBUTION WIDTH 13.5 % (11.5-14.5); WHITE BLOOD COUNT 8.5 K/mm3 (4.0-10.0)
[2016-12-05 07:35] LABS: CREATININE FOR GFR 1.37 MG/DL (0.55-1.02); GLOMERULAR FILTRATION RATE 40.2 (>39); POTASSIUM SERUM 4.2 MEQ/L (3.5-5.1)
[2016-12-05] MEDS: LIDOCAINE 5% (LIDODERM) PATCH TD SCH (09:12)
[2016-12-05] MEDS: ACETAMINOPHEN 500 MG TAB PO PRN (09:12)
[2016-12-05] MEDS: DOCUSATE SODIUM 100 MG CAP PO SCH ×2 (09:13→20:21)
[2016-12-05] MEDS: BISOPROLOL FUMARATE 5 MG TAB PO SCH (09:13)
[2016-12-05] MEDS: AMIODARONE 200 MG TAB (PACERONE) PO SCH (09:13)
[2016-12-05] MEDS: CALCIUM/VITAMIN D 500 MG TAB PO SCH (09:13)
[2016-12-05] MEDS: ASPIRIN 81 MG ENTERIC TAB PO SCH (09:13)
[2016-12-05] MEDS: FLUoxetine 20 MG CAP PO SCH (09:13)
--- NOTE | 2016-12-05 11:35 | IPNPDOC ---
[employer] Progress Note PROGRESS NOTE DATE OF ADMISSION: 12/02/2016 DATE OF SERVICE: 12/05/2016 IDENTIFICATION STATEMENT: Patient is a 71-year-old woman with intraparenchymal acute hemorrhage within the left insular cortex and left temporal lobe, global aphasia and right sided tremor admitted for comprehensive integrated inpatient rehabilitation. PAST MEDICAL HISTORY: Congestive heart failure (ejection fracture 30%) COPD Dilated cardiomyopathy Left bundle branch block Left atrial thrombus Anemia Anxiety Mitral valve prophylaxis Osteoporosis Paroxysmal atrial fibrillation Patent foramen ovale Rheumatoid arthritis PAST SURGICAL HISTORY: Bilateral total knee replacements Pacemaker placement ALLERGIES: Morphine leads to nausea and vomiting MEDICATIONS: Amiodarone 200 mg daily Aspirin EC 81 mg daily Zebeta 7.5 mg daily Prozac 20mg daily Calcium 500 mg daily Demadex 10 mg daily-hold Acetaminophen 1000 mg every 6 hours as needed for pain Lidoderm patch to left knee Enbrel 50 mg once a week Fosamax 70 mg every Friday SUBJECTIVE: Patient states she cold, but offers no other complaints. Answers in 2-3 words. Denies CP, SOB, new weakness, N/V, C/D, dysuria. VITAL SIGNS: 99.5F, pulse of 88, respiratory rate of 20, blood pressure 159/88 , 93% saturation on room air PHYSICAL EXAMINATION: GENERAL: Well nourished, well developed, sitting up in chair, no acute distress , calm, smiles periodically. HEENT: Normocephalic, atraumatic. No facial droop. PERRL, EOMI CARDIOVASCULAR: S1, S2, irregular rate. No lower limb edema. Non- tenderness left knee. LUNGS: Scant bibasilar crackles (decreased), no wheezing or rhonchi ABDOMEN: Soft, nontender, nondistended. Normoactive bowel sounds throughout. MUSCULOSKELETAL: Bruise on the left cheek and left knee (healing). NEUROLOGICAL: Alert to person only. Answers with 1-3 word sentences. Improved affect. MMT: 5/5 strength bilateral upper and lower limbs in all major muscle groups with the exception of the left lower limb 4/5 left hip flexors 5/5 left knee extension. SKIN: Well-healed surgical scars bilateral knees. LABORATORY DATA: 12/05/16: reviewed, see below IMAGING: CT of the head on 11/24/2016: Intraparenchymal acute hemorrhage within the left insular cortex in the left temporal lobe with associated mass effect, sulcal effacement, vasogenic edema and right with midline shift. Hyperdensity within the atrium of the left lateral ventricle, suggestive of intraventricular extension of the intraparenchymal hemorrhage. CTA of the head: Basilar artery tip aneurysm. CTA of the neck: No evidence of dissection or significant stenosis. Thyroid nodule as mentioned above. Correlation with part patients symptoms and lab values is recommended. If clinically indicated, non-emergent ultrasound of the thyroid Be obtained. 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 No arteriovenous malformation or aneurysm in the left temporal lobe at the site of the hemorrhage. X-ray of the knee 11/25/2016: Left knee replacement without evidence of fracture or loosening. If the patients symptoms persist, follow up radiograph in 7-10 days may be helpful to further evaluate. Echocardiogram 11/25/2015 estimated left ventricular ejection fraction 30-35% FUNCTIONAL STATUS, premorbid: Independent with ADLs and ambulation. No limitations/deficits in speech and cognition. ASSESSMENT AND PLAN: 1. Left temporal parietal hemorrhage with mass effect resulting in global aphasia and left-sided shaking impacting mobility, ADLs and language: Patient had extended period of agitation 12/02/16 which has resolved (see below). Continue daily therapies. Rehabilitation nursing for bladder, bowel and medication management. 2. Agitation: Episode from 12/02/16 resolved with IM Ativan (3mg). [CT head w/o new findings. UA neg, UCx contaminated]. I discontinued Ativan yesterday since her acute episode has resolved and she has not required any sedative in over 36hrs. Unfortunately, charge nurse yesterday decided to moved her to a room closer to the nursing station (note: patient was not impulse, reason for moving per nurse was just to be closer to nursing station. She subsequently became mildly agitated. I spent about 20 minutes in the room with her re-orienting her , providing her with familiar objects, was present. She eventally calmed down, no Ativan was required. RN was told that patient is not to meved again without doctors order. Today she is back to baseline, no agitation. 3. Hypokalemia: Likely 2nd Demadex. Resolved with supplementation. Demadex on hold (see below). Once Demadex is restarted, will restart potassium supplementation, but at lower dose, 20 mEq. 4. Acute on chronic Renal insufficiency: Resolved w oral hydration and holding diuretic [ BUN/urine creatinine was 23/1.3 on 12/02/16 at [facility]. Bladder scans w/ o significant retention. UA unimpressive]. Restart Demadex Sat. Closely monitor patients fluid/pulmonary status during this time. 5. Knee pain: XR from [facility] w/o fx. Symptoms improving. Continue intermittent ice and Lidoderm patch. Reimage if indicated. 6. Paroxysmal atrial fibrillation: Continue aspirin. Per the discharge summary, anticoagulants of should not be restarted until December 23. 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 Continue patient on amiodarone & B- regina. 7. Congestive heart failure: No evidence of respiratory distress. Weight down since admission. As above, holding demadex until Sat. Continue B-regina. Daily weights. Adjustments as indicated. 8. Rheumatoid arthritis: Enbrel qweek 9. Atrial thrombus: Per , this was addressed when pacemaker placed. Continue aspirin 10. Diet/nutrition: Prealbumin wnl. Continue mechanical soft, thin liquids per discharge summary. / Vital Signs Vital Sign - Last 24 Hours 12/04/16 12/04/16 12/04/16 12/05/16 14:00 19:38 20:00 06:00 Temp 99.5 98.0 98.0 Pulse 82 70 72 Resp 18 18 18 B/P 126/62 118/67 120/71 Pulse Ox 96 97 94 O2 Delivery Room Air Room Air Room Air Room Air 12/05/16 12/05/16 08:00 09:13 Pulse 72 B/P 120/71 O2 Delivery Room Air Laboratory Data CBC/BMP Laboratory Tests 12/05/16 06:47 Calcium Level 9.0, Red Blood Count 2.84 L, Mean Corpuscular Volume 96.1 H, Mean Corpuscular Hemoglobin 31.2, Mean Corpuscular Hemoglobin Concent 32.4, Red Cell Distribution Width 13.5, Neutrophils (%) (Auto) 65.4, Lymphocytes (%) (Auto) 19.3 L, Monocytes (%) (Auto) 4.9, Eosinophils (%) (Auto) 4.9 H, Basophils (%) ( Auto) 0.5, Neutrophils # (Auto) 5.6, Lymphocytes # (Auto) 1.6, Monocytes # (Auto ) 0.4, Eosinophils # (Auto) 0.4, Basophils # (Auto) 0.0 Labs 24H Laboratory Tests 2 12/05/16 06:47: Anion Gap 7L, White Blood Count 8.5, Red Blood Count 2.84L, Hemoglobin 8.8L, Hematocrit 27.3L, Mean Corpuscular Volume 96.1H, Mean Corpuscular Hemoglobin 31.2, Mean Corpuscular Hemoglobin Concent 32.4, Red Cell Distribution Width 13.5 , Platelet Count 214, Neutrophils (%) (Auto) 65.4, Lymphocytes (%) (Auto) 19.3L , Monocytes (%) (Auto) 4.9, Eosinophils (%) (Auto) 4.9H, Basophils (%) (Auto) 0.5, Neutrophils # (Auto) 5.6, Lymphocytes # (Auto) 1.6, Monocytes # (Auto) 0.4 , Eosinophils # (Auto) 0.4, Basophils # (Auto) 0.0, Blood Urea Nitrogen 30H, Creatinine 1.37H, Sodium Level 141, Potassium Level 4.2, Chloride Level 106, Carbon Dioxide Level 28, Calcium Level 9.0, Glomerular Filtration Rate 40.2, Large Unclassified Cells # 0.4, Large Unclassified Cells % 5.0H Microbiology Microbiology 12/04/16 Urine Culture - Final, Complete Allergies Allergies: Coded Allergies: Morphine (Unverified Adverse Reaction, Mild, NAUSEA,GI UPSET, 02/07/14) Current Medications Current Medications Current Medications Acetaminophen (Tylenol Tab) 1,000 mg Q6HP PRN PO PAIN Last administered on 09:12; Start 12/02/16 at 11:15; Stop 01/01/17 at 11:14 Alendronate Sodium (Fosamax) 70 mg Tu@07 PO Last administered on 12/03/16 08: 12; Start 12/03/16 at 07:00; Stop 01/02/17 at 06:59 Amiodarone HCl (Pacerone, Cordarone) 200 mg DAILY PO Last administered on 09:13; Start 12/03/16 at 09:00; Stop 01/02/17 at 08:59 Aspirin (Ecotrin) 81 mg DAILY PO Last administered on 12/05/16 09:13; Start at 09:00; Stop 01/02/17 at 08:59 Bisoprolol Fumarate (Zebeta) 7.5 mg DAILY PO Last administered on 12/05/16 09: 13; Start 12/03/16 at 09:00; Stop 01/02/17 at 08:59 Calcium/Vitamin D (Oscal D) 500 mg DAILY PO Last administered on 12/05/16 09:13 ; Start 12/03/16 at 09:00; Stop 01/02/17 at 08:59 Diphenhydramine HCl (Benadryl) 25 mg TIDP PRN PO agitation; Start 12/02/16 at 21:00; Stop 12/03/16 at 09:08; Status DC Docusate Sodium (Colace) 100 mg BID PO Last administered on 12/05/16 09:13; Start 12/02/16 at 09:00; Stop 01/01/17 at 08:59 Fluoxetine HCl (PROzac) 20 mg DAILY PO Last administered on 12/05/16 09:13; Start 12/03/16 at 09:00; Stop 01/02/17 at 08:59 Haloperidol (Haldol) 2 mg Q6HP PRN IV AGITATION; Start 12/03/16 at 18:45; Stop 12/03/16 at 18:45; Status DC Home Med (Med Rec Complete!) ASDIRECTED XX ; Start 12/02/16 at 12:15; Stop at 12:15; Status DC Lidocaine (Lidoderm Patch) 1 patch DAILY TD Last administered on 12/05/16 09:12 ; Start 12/03/16 at 09:00; Stop 01/02/17 at 08:59 Lorazepam (Ativan) 0.5 mg Q6HP PRN IM AGITATION; Start 12/02/16 at 20:15; Stop 12/03/16 at 18:37; Status DC Lorazepam (Ativan) 0.5 mg Q6HP PRN IV AGITATION; Start 12/02/16 at 17:00; Stop 12/02/16 at 20:05; Status DC Lorazepam (Ativan) 0.5 mg Q6HP PRN IV AGITATION; Start 12/03/16 at 18:45; Stop 12/04/16 at 09:49; Status DC Magnesium Hydroxide (Milk Of Magnesia) 30 ml DAILYPRN PRN PO CONSTIPATION; Start 12/02/16 at 11:15; Stop 01/01/17 at 11:14 Miscellaneous (Unresolved Patient Own Med Order) SEE LABEL COMMENTS UNRESOLVED XX ; Start 12/03/16 at 00:01; Stop 12/04/16 at 12:19; Status DC Non-Formulary Medication ( See Comment Field Below ) REMOVE LIDODERM PATCH DAILY@21 XX Last administered on 12/04/16 20:17; Start 12/03/16 at 21:00; Stop 01/02/17 at 20:59 Patient Own Medication (Patient'S Own Med) ENBREL 50MG/ ML AUTOINJECT... Q7D SQ Last administered on 12/03/16 18:12; Start 12/03/16 at 09:00; Stop 01/02/17 at 08:59 Polyethylene Glycol (Miralax) 1 pkt DAILY PRN PO CONSTIPATION; Start 12/02/16 at 11:15; Stop 01/01/17 at 11:14 Potassium Chloride (Micro-K Extencaps) 20 meq DAILY PO ; Start 12/05/16 at 09:00 ; Stop 01/04/17 at 08:59; Status Future hold Potassium Chloride (Micro-K Extencaps) 40 meq DAILY PO Last administered on 12/04 08:56; Start 12/04/16 at 09:00; Stop 12/04/16 at 13:28; Status DC Senna (Senokot) 1 tab BIDP PRN PO CONSTIPATION; Start 12/04/16 at 21:00; Stop at 20:59 Senna (Senokot) 1 tab QHS PO ; Start 12/02/16 at 21:00; Stop 12/04/16 at 12:17; Status DC Torsemide (Demadex) 10 mg DAILY PO Last administered on 12/04/16 08:53; Start 12/03/16 at 09:00; Stop 01/02/17 at 08:59; Status Future hold GINO FAJARDO MD Dec 05, 2016 11:35
[2016-12-05 14:00] VITALS: BP 105/67
[2016-12-05 20:00] VITALS: BP 117/67
[2016-12-06 06:00] VITALS: BP 116/62
[2016-12-06 07:32] LABS: MEAN CORPUSCULAR HEMOGLOBIN 31.6 pg (27.0-33.0); MEAN CORPUSCULAR HGB CONC 32.8 g/dl (32.0-36.5); MEAN CORPUSCULAR VOLUME 96.5 fl (80.0-96.0); RED CELL DISTRIBUTION WIDTH 13.5 % (11.5-14.5); WHITE BLOOD COUNT 9.7 K/mm3 (4.0-10.0)
[2016-12-06 07:39] LABS: CREATININE FOR GFR 1.17 MG/DL (0.55-1.02); GLOMERULAR FILTRATION RATE 48.3 (>39); POTASSIUM SERUM 4.3 MEQ/L (3.5-5.1)
[2016-12-06] MEDS: FLUoxetine 20 MG CAP PO SCH (09:55)
[2016-12-06] MEDS: LIDOCAINE 5% (LIDODERM) PATCH TD SCH (09:55)
[2016-12-06] MEDS: DOCUSATE SODIUM 100 MG CAP PO SCH ×2 (09:55→20:05)
[2016-12-06] MEDS: AMIODARONE 200 MG TAB (PACERONE) PO SCH (09:55)
[2016-12-06] MEDS: CALCIUM/VITAMIN D 500 MG TAB PO SCH (09:55)
[2016-12-06] MEDS: ASPIRIN 81 MG ENTERIC TAB PO SCH (09:55)
[2016-12-06] MEDS: BISOPROLOL FUMARATE 5 MG TAB PO SCH (09:56)
--- NOTE | 2016-12-06 11:42 | IPNPDOC ---
[employer] Progress Note PROGRESS NOTE DATE OF ADMISSION: 12/02/2016 DATE OF SERVICE: 12/06/2016 IDENTIFICATION STATEMENT: Patient is a 71-year-old woman with intraparenchymal acute hemorrhage within the left insular cortex and left temporal lobe, global aphasia and right sided tremor admitted for comprehensive integrated inpatient rehabilitation. PAST MEDICAL HISTORY: Congestive heart failure (ejection fracture 30%) COPD Dilated cardiomyopathy Left bundle branch block Left atrial thrombus Anemia Anxiety Mitral valve prophylaxis Osteoporosis Paroxysmal atrial fibrillation Patent foramen ovale Rheumatoid arthritis PAST SURGICAL HISTORY: Bilateral total knee replacements Pacemaker placement ALLERGIES: Morphine leads to nausea and vomiting MEDICATIONS: Amiodarone 200 mg daily Aspirin EC 81 mg daily Zebeta 7.5 mg daily Prozac 20mg daily Calcium 500 mg daily Demadex 10 mg daily-hold Acetaminophen 1000 mg every 6 hours as needed for pain Enbrel 50 mg once a week Fosamax 70 mg every Friday SUBJECTIVE: Patient states doesnt feel great, no specific. When provided with options chooses quesi twice. Also answers yes twice to burning with urination. Denies CP, SOB, new weakness, N/V, C/D, dysuria. VITAL SIGNS: 99.5F, pulse of 88, respiratory rate of 20, blood pressure 159/88 , 93% saturation on room air PHYSICAL EXAMINATION: GENERAL: Well nourished, well developed, sitting up in recliner, no acute distress, calm, smiles periodically. HEENT: Normocephalic, atraumatic. No facial droop. PERRL, EOMI CARDIOVASCULAR: S1, S2, irregular rate. No lower limb edema. Non- tenderness left knee. LUNGS: Scant bibasilar crackles (overall decreased), no wheezing or rhonchi ABDOMEN: Soft, nontender, nondistended. Normoactive bowel sounds throughout. MUSCULOSKELETAL: Bruise on the left cheek and left knee (healing). NEUROLOGICAL: Alert to person. Answers with 1-3 word sentences. Fluent. Improved affect. MMT: 5/5 strength bilateral upper and lower limbs in all major muscle groups with the exception of the left lower limb 4/5 left hip flexors 5/ 5 left knee extension. SKIN: Well-healed surgical scars bilateral knees. LABORATORY DATA: 12/06/16: reviewed, see below IMAGING: CT of the head on 11/24/2016: Intraparenchymal acute hemorrhage within the left insular cortex in the left temporal lobe with associated mass effect, sulcal effacement, vasogenic edema and right with midline shift. Hyperdensity within the atrium of the left lateral ventricle, suggestive of intraventricular extension of the intraparenchymal hemorrhage. CTA of the head: Basilar artery tip aneurysm. CTA of the neck: No evidence of dissection or significant stenosis. Thyroid nodule as mentioned above. Correlation with part patients symptoms and lab values is recommended. If clinically indicated, non-emergent ultrasound of the thyroid Be obtained. 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 No arteriovenous malformation or aneurysm in the left temporal lobe at the site of the hemorrhage. X-ray of the knee 11/25/2016: Left knee replacement without evidence of fracture or loosening. If the patients symptoms persist, follow up radiograph in 7-10 days may be helpful to further evaluate. Echocardiogram 11/25/2015 estimated left ventricular ejection fraction 30-35% FUNCTIONAL STATUS, premorbid: Independent with ADLs and ambulation. No limitations/deficits in speech and cognition. ASSESSMENT AND PLAN: 1. Left temporal parietal hemorrhage with mass effect resulting in global aphasia and left-sided shaking impacting mobility, ADLs and language: Patient had extended period of agitation 12/02/16 which has resolved (see below). Patient making progress. Continue daily therapies. Rehabilitation nursing for bladder, bowel and medication management. 2. Agitation: Episode from 12/02/16 resolved with IM Ativan (3mg). [CT head w/o new findings. UA neg, UCx contaminated]. Mild episode 12/04/16, resolved w/o medication. No further episodes. 3. Hypokalemia: Likely 2nd Demadex. Resolved with supplementation. Demadex on hold (see below). Scheduled to restart tomorrow. Once Demadex is restarted, will restart potassium supplementation, but at lower dose, 20 mEq. 4. Acute on chronic Renal insufficiency: Resolving s/p oral hydration and holding diuretic [ BUN/urine creatinine was 23/1.3 on 12/02/16 at [facility]. Bladder scans w/o significant retention.]. Cancelled oral hydration order. Restart Demadex Sat. Closely monitor patients fluid/pulmonary status during this time. 5. Knee pain: XR from [facility] w/o fx. Symptoms improving. Continue intermittent ice and Lidoderm patch. Reimage if indicated. 6. Paroxysmal atrial fibrillation: Continue aspirin. Per the discharge summary, anticoagulants of should not be restarted until December 23. 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 Continue patient on amiodarone & B- regina. 7. Congestive heart failure: No evidence of respiratory distress. Weight down since admission yesterday, but not done today despite nursing order. Will discuss with nursing. As above, holding demadex until Sat. Continue B-regina. Continue daily weights. Adjustments as indicated. 8. Rheumatoid arthritis: Enbrel qweek 9. Atrial thrombus: Per , this was addressed when pacemaker placed. Continue aspirin. 10. Diet/nutrition: Prealbumin wnl. Continue mechanical soft, thin liquids per discharge summary. 11. Dysuria?: Will obtain repeat urine sample as last one appeared contaminated. Will try clean catch as SC may trigger agitation. Nurse instructed to assist patient in collecting sample (apparently, this was not case last time). / Vital Signs Vital Sign - Last 24 Hours 12/05/16 12/05/16 12/06/16 12/06/16 14:00 20:00 06:00 09:56 Temp 97.7 98.4 98.6 Pulse 67 69 73 73 Resp 18 18 18 B/P 105/67 117/67 116/62 116/62 Pulse Ox 100 93 94 O2 Delivery Room Air Room Air Room Air Laboratory Data CBC/BMP Laboratory Tests 12/06/16 06:44 Calcium Level 9.0, Red Blood Count 2.84 L, Mean Corpuscular Volume 96.5 H, Mean Corpuscular Hemoglobin 31.6, Mean Corpuscular Hemoglobin Concent 32.8, Red Cell Distribution Width 13.5 Labs 24H Laboratory Tests 2 12/06/16 06:44: Anion Gap 7L, Blood Urea Nitrogen 24H, Creatinine 1.17H, Sodium Level 141, Potassium Level 4.3, Chloride Level 107, Carbon Dioxide Level 27, Calcium Level 9.0, Glomerular Filtration Rate 48.3 Microbiology Microbiology 12/04/16 Urine Culture - Final, Complete Allergies Allergies: Coded Allergies: Morphine (Unverified Adverse Reaction, Mild, NAUSEA,GI UPSET, 02/07/14) Current Medications Current Medications Current Medications Acetaminophen (Tylenol Tab) 1,000 mg Q6HP PRN PO PAIN Last administered on 09:12; Start 12/02/16 at 11:15; Stop 01/01/17 at 11:14 Alendronate Sodium (Fosamax) 70 mg @07 PO Last administered on 12/03/16 08: 12; Start 12/03/16 at 07:00; Stop 01/02/17 at 06:59 Amiodarone HCl (Pacerone, Cordarone) 200 mg DAILY PO Last administered on 09:55; Start 12/03/16 at 09:00; Stop 01/02/17 at 08:59 Aspirin (Ecotrin) 81 mg DAILY PO Last administered on 12/06/16 09:55; Start at 09:00; Stop 01/02/17 at 08:59 Bisoprolol Fumarate (Zebeta) 7.5 mg DAILY PO Last administered on 12/06/16 09: 56; Start 12/03/16 at 09:00; Stop 01/02/17 at 08:59 Calcium/Vitamin D (Oscal D) 500 mg DAILY PO Last administered on 12/06/16 09:55 ; Start 12/03/16 at 09:00; Stop 01/02/17 at 08:59 Diphenhydramine HCl (Benadryl) 25 mg TIDP PRN PO agitation; Start 12/02/16 at 21:00; Stop 12/03/16 at 09:08; Status DC Docusate Sodium (Colace) 100 mg BID PO Last administered on 12/06/16 09:55; Start 12/02/16 at 09:00; Stop 01/01/17 at 08:59 Fluoxetine HCl (PROzac) 20 mg DAILY PO Last administered on 12/06/16 09:55; Start 12/03/16 at 09:00; Stop 01/02/17 at 08:59 Haloperidol (Haldol) 2 mg Q6HP PRN IV AGITATION; Start 12/03/16 at 18:45; Stop 12/03/16 at 18:45; Status DC Home Med (Med Rec Complete!) ASDIRECTED XX ; Start 12/02/16 at 12:15; Stop at 12:15; Status DC Lidocaine (Lidoderm Patch) 1 patch DAILY TD Last administered on 12/06/16 09:55 ; Start 12/03/16 at 09:00; Stop 01/02/17 at 08:59 Lorazepam (Ativan) 0.5 mg Q6HP PRN IM AGITATION; Start 12/02/16 at 20:15; Stop 12/03/16 at 18:37; Status DC Lorazepam (Ativan) 0.5 mg Q6HP PRN IV AGITATION; Start 12/02/16 at 17:00; Stop 12/02/16 at 20:05; Status DC Lorazepam (Ativan) 0.5 mg Q6HP PRN IV AGITATION; Start 12/03/16 at 18:45; Stop 12/04/16 at 09:49; Status DC Magnesium Hydroxide (Milk Of Magnesia) 30 ml DAILYPRN PRN PO CONSTIPATION; Start 12/02/16 at 11:15; Stop 01/01/17 at 11:14 Miscellaneous (Unresolved Patient Own Med Order) SEE LABEL COMMENTS UNRESOLVED XX ; Start 12/03/16 at 00:01; Stop 12/04/16 at 12:19; Status DC Non-Formulary Medication ( See Comment Field Below ) REMOVE LIDODERM PATCH DAILY@21 XX Last administered on 12/05/16 20:22; Start 12/03/16 at 21:00; Stop 01/02/17 at 20:59 Patient Own Medication (Patient'S Own Med) ENBREL 50MG/ ML AUTOINJECT... Q7D SQ Last administered on 12/03/16 18:12; Start 12/03/16 at 09:00; Stop 01/02/17 at 08:59 Polyethylene Glycol (Miralax) 1 pkt DAILY PRN PO CONSTIPATION; Start 12/02/16 at 11:15; Stop 01/01/17 at 11:14 Potassium Chloride (Micro-K Extencaps) 20 meq DAILY PO ; Start 12/05/16 at 09:00 ; Stop 01/04/17 at 08:59; Status Future hold Potassium Chloride (Micro-K Extencaps) 40 meq DAILY PO Last administered on 12/04 08:56; Start 12/04/16 at 09:00; Stop 12/04/16 at 13:28; Status DC Senna (Senokot) 1 tab BIDP PRN PO CONSTIPATION; Start 12/04/16 at 21:00; Stop at 20:59 Senna (Senokot) 1 tab QHS PO ; Start 12/02/16 at 21:00; Stop 12/04/16 at 12:17; Status DC Torsemide (Demadex) 10 mg DAILY PO Last administered on 12/04/16t 08:53; Start 12/03/16 at 09:00; Stop 01/02/17 at 08:59; Status Future hold GINO FAJARDO MD Dec 06, 2016 11:42
[2016-12-06 14:00] VITALS: BP 104/60
[2016-12-06 20:00] VITALS: BP 116/58
[2016-12-07 06:00] VITALS: BP 127/56
[2016-12-07] MEDS: LIDOCAINE 5% (LIDODERM) PATCH TD SCH (09:22)
[2016-12-07] MEDS: ASPIRIN 81 MG ENTERIC TAB PO SCH (09:23)
[2016-12-07] MEDS: POTASSIUM CHLORIDE 10 MEQ SR TABLET PO SCH (09:24)
[2016-12-07] MEDS: BISOPROLOL FUMARATE 5 MG TAB PO SCH (09:27)
[2016-12-07] MEDS: AMIODARONE 200 MG TAB (PACERONE) PO SCH (09:28)
[2016-12-07] MEDS: DOCUSATE SODIUM 100 MG CAP PO SCH ×2 (09:28→20:59)
[2016-12-07] MEDS: CALCIUM/VITAMIN D 500 MG TAB PO SCH (09:28)
[2016-12-07] MEDS: FLUoxetine 20 MG CAP PO SCH (09:29)
[2016-12-07] MEDS: TORSEMIDE 10 MG TABLET PO SCH (10:43)
[2016-12-07 14:00] VITALS: BP 119/57
[2016-12-07 20:00] VITALS: BP 105/59
[2016-12-08 06:00] VITALS: BP 124/52
[2016-12-08] MEDS: LIDOCAINE 5% (LIDODERM) PATCH TD SCH (09:00)
[2016-12-08] MEDS: CALCIUM/VITAMIN D 500 MG TAB PO SCH (10:36)
[2016-12-08] MEDS: DOCUSATE SODIUM 100 MG CAP PO SCH ×2 (10:38→20:39)
[2016-12-08] MEDS: BISOPROLOL FUMARATE 5 MG TAB PO SCH (10:38)
[2016-12-08] MEDS: POTASSIUM CHLORIDE 10 MEQ SR TABLET PO SCH (10:39)
[2016-12-08] MEDS: ASPIRIN 81 MG ENTERIC TAB PO SCH (10:39)
[2016-12-08] MEDS: AMIODARONE 200 MG TAB (PACERONE) PO SCH (10:40)
[2016-12-08] MEDS: FLUoxetine 20 MG CAP PO SCH (10:40)
[2016-12-08] MEDS: TORSEMIDE 10 MG TABLET PO SCH (10:41)
[2016-12-08] MEDS ORDERED: ONDANSETRON 4 MG TAB (S0181) PO PRN (11:00)
[2016-12-08 11:47] LABS: BASO # 0.1 K/mm3 (0.0-0.2); BASO % 0.7 % (0.0-1.0); EOS # 0.3 K/mm3 (0.0-0.50); EOS % 3.2 % (0.0-3.0); LARGE UNSTAINED CELL # 0.3 K/mm3 (0.0-0.4); LARGE UNSTAINED CELL % 3.5 % (0.0-4.0); LYMPH # 1.9 K/mm3 (1.5-4.5); LYMPH % 17.7 % (24.0-44.0); MEAN CORPUSCULAR HEMOGLOBIN 31.8 pg (27.0-33.0); MEAN CORPUSCULAR HGB CONC 32.8 g/dl (32.0-36.5); MONO # 0.7 K/mm3 (0.0-0.8); MONO % 7.1 % (0.0-5.0); NEUTROPHILS # 6.2 K/mm3 (1.8-7.7); NEUTROPHILS % 67.8 % (36.0-66.0); PLATELET COUNT, AUTOMATED 214 k/mm3 (150-450); RED CELL DISTRIBUTION WIDTH 13.7 % (11.5-14.5); WHITE BLOOD COUNT 9.1 K/mm3 (4.0-10.0)
[2016-12-08 12:03] LABS: CALCIUM LEVEL 8.4 MG/DL (8.8-10.2); CREATININE FOR GFR 1.35 MG/DL (0.55-1.02); GLOMERULAR FILTRATION RATE 40.9 (>39); POTASSIUM SERUM 4.6 MEQ/L (3.5-5.1)
[2016-12-08 14:00] VITALS: BP 112/59
[2016-12-08 20:00] VITALS: BP 103/51
[2016-12-09 06:00] VITALS: BP 119/57
[2016-12-09 08:36] VITALS: BP 119/57
[2016-12-09] MEDS: DOCUSATE SODIUM 100 MG CAP PO SCH (08:36)
[2016-12-09] MEDS: CALCIUM/VITAMIN D 500 MG TAB PO SCH (08:36)
[2016-12-09] MEDS: BISOPROLOL FUMARATE 5 MG TAB PO SCH (08:36)
[2016-12-09] MEDS: ASPIRIN 81 MG ENTERIC TAB PO SCH (08:36)
[2016-12-09] MEDS: AMIODARONE 200 MG TAB (PACERONE) PO SCH (08:36)
[2016-12-09] MEDS: TORSEMIDE 10 MG TABLET PO SCH (08:36)
[2016-12-09] MEDS: FLUoxetine 20 MG CAP PO SCH (08:36)
[2016-12-09] MEDS: LIDOCAINE 5% (LIDODERM) PATCH TD SCH (08:37)
[2016-12-09] MEDS: POTASSIUM CHLORIDE 10 MEQ SR TABLET PO SCH (08:37)
[2016-12-09] MEDS ORDERED: FLUO20CA9 PO (10:06)
[2016-12-09] MEDS ORDERED: AMIO20TA PO (10:06)
[2016-12-09] MEDS ORDERED: POTA10CA PO (10:06)
[2016-12-09] MEDS ORDERED: TORS10TA3 PO (10:06)
[2016-12-09] MEDS ORDERED: BISO5TAB5 PO (10:06)
--- NOTE | 2016-12-09 11:03 | DS.PDOC ---
Nurseryman Assistant Discharge Note DISCHARGE SUMMARY DATE OF ADMISSION: 12/02/2016 DATE OF DISCHARGE: 12/09/2016 DISCHARGE DIAGNOSES 1. Left temporal parietal hemorrhage with mass effect 2. Global aphasia 2. Agitation, resolved 3. Hypokalemia 4. Acute on chronic Renal insufficiency 5. Knee pain 6. Paroxysmal atrial fibrillation 7. H/o congestive heart failure 8. Rheumatoid arthritis IDENTIFICATION STATEMENT: Patient is a 71-year-old woman with intraparenchymal acute hemorrhage within the left insular cortex and left temporal lobe, global aphasia and right sided tremor admitted for comprehensive integrated inpatient rehabilitation. PAST MEDICAL HISTORY: Congestive heart failure (ejection fracture 30%) COPD Dilated cardiomyopathy Left bundle branch block Left atrial thrombus Anemia Anxiety Mitral valve prophylaxis Osteoporosis Paroxysmal atrial fibrillation Patent foramen ovale Rheumatoid arthritis PAST SURGICAL HISTORY: Bilateral total knee replacements Pacemaker placement HOSPITAL COURSE The patient underwent daily therapies. She tolerated sessions well and made gains, although continued with significant comprehension/language deficits. On she was deemed stable discharge home. Other issues addressed while on the rehabilitation unit are outlined as follows: 1. Agitation: Episode from 12/02/16 resolved with IM Ativan (3mg-divided doses). Mild episode 12/04/16, resolved w/o medication. No further episodes. [Note: CT head done and w/o new findings. UCx contaminated x 2. Third urine sample 2nd low grade, complaints of nausea and reneal insuffcency UA neg, UCx still pending]. 2. Hypokalemia: Likely 2nd Demadex. Resolved with supplementation. 3. Acute on chronic renal insufficiency: Resolving s/p oral hydration and holding diureticx 2 days [ Note: Bladder scans w/o significant retention]. 4. Knee pain: XR from [facility] w/o fx. Symptoms improving. Maintained on intermittent ice & Lidoderm patch. 5. Paroxysmal atrial fibrillation: Continue aspirin. Per the discharge summary, anticoagulants of should not be restarted until December 23. Follow-up appointment with her manager of tax provided for after discharge. Continue amiodarone & B- regina. 6. Congestive heart failure: Monitored daily weight and weight down since admission. Continue B-regina. 7. Rheumatoid arthritis: Enbrel qweek 8. Diet/nutrition: Prealbumin wnl. Continue mechanical soft, thin liquids. 10. Questionable dysuria: As above, urine samples obtained. Most recent sample w /o evidence of infection, but culture still pending. VITAL SIGNS: 98.7F, pulse of 73, respiratory rate of 18, blood pressure 119/57 , 96% saturation on room air PHYSICAL EXAMINATION: GENERAL: Well nourished, well developed, sitting up in bed, no acute distress, calm, smiles periodically. HEENT: Normocephalic, atraumatic. No facial droop. PERRL, EOMI CARDIOVASCULAR: S1, S2, irregular rate. No lower limb edema. Non- tenderness left knee. LUNGS: Scant bibasilar crackles (much improved over admission), no wheezing or rhonchi ABDOMEN: Soft, nontender, nondistended. Normoactive bowel sounds throughout. MUSCULOSKELETAL: Bruise on the left cheek resolved and left knee (resolving). NEUROLOGICAL: Alert to person. Answers with 1-3 word sentences. Yes-no reliability ~50%. Fluent. Improved affect. MMT: 5/5 strength bilateral upper and lower limbs in all major muscle groups with the exception of the left lower limb 5/5 left hip flexors 5/5 left knee extension. SKIN: Well-healed surgical scars bilateral knees. LABORATORY DATA: 12/08/16: reviewed, see below IMAGING: CT head 12/02/16: non-acute CT of the head on 11/24/2016: Intraparenchymal acute hemorrhage within the left insular cortex in the left temporal lobe with associated mass effect, sulcal effacement, vasogenic edema and right with midline shift. Hyperdensity within the atrium of the left lateral ventricle, suggestive of intraventricular extension of the intraparenchymal hemorrhage. CTA of the head: Basilar artery tip aneurysm. CTA of the neck: No evidence of dissection or significant stenosis. Thyroid nodule as mentioned above. Correlation with part patients symptoms and lab values is recommended. If clinically indicated, non-emergent ultrasound of the thyroid Be obtained. 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 No arteriovenous malformation or aneurysm in the left temporal lobe at the site of the hemorrhage. X-ray of the knee 11/25/2016: Left knee replacement without evidence of fracture or loosening. If the patients symptoms persist, follow up radiograph in 7-10 days may be helpful to further evaluate. Echocardiogram 11/25/2015 estimated left ventricular ejection fraction 30-35% ALLERGIES: Morphine leads to nausea and vomiting MEDICATIONS: Amiodarone 200 mg daily Aspirin EC 81 mg daily Zebeta 7.5 mg daily Prozac 20mg daily Calcium 500 mg daily Demadex 10 mg daily Potassium Chlorids 10mEq daily Acetaminophen 1000 mg every 6 hours as needed for pain Enbrel 50 mg once a week Fosamax 70 mg every Friday DISCHARGE DISPOSITION: 1. The patient discharge home with family 2. The patient discharged in stable condition 3. 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 Post discharge follow-up medical appointments: PCP, NS, Neurologist and Snowmaker. / Vital Signs/I&O Vital Sign - Last 24 Hours 12/08/16 12/08/16 12/08/16 12/09/16 14:00 20:00 20:47 06:00 Temp 98.2 98.4 98.7 Pulse 67 69 73 Resp 18 18 18 B/P 112/59 103/51 119/57 Pulse Ox 98 94 96 O2 Delivery Room Air Room Air Room Air Room Air 12/09/16 12/09/16 08:36 09:00 Pulse 73 B/P 119/57 O2 Delivery Room Air I&O- Last 24 Hours up to 6 AM 12/09/16 06:00 Intake Total 1200 ml Output Total 700 ml Balance 500 ml Laboratory Data CBC/BMP Laboratory Tests 12/08/16 11:15 Calcium Level 8.4 L, Red Blood Count 2.84 L, Mean Corpuscular Volume 97.0 H, Mean Corpuscular Hemoglobin 31.8, Mean Corpuscular Hemoglobin Concent 32.8, Red Cell Distribution Width 13.7, Neutrophils (%) (Auto) 67.8 H, Lymphocytes (%) ( Auto) 17.7 L, Monocytes (%) (Auto) 7.1 H, Eosinophils (%) (Auto) 3.2 H, Basophils (%) (Auto) 0.7, Neutrophils # (Auto) 6.2, Lymphocytes # (Auto) 1.9, Monocytes # (Auto) 0.7, Eosinophils # (Auto) 0.3, Basophils # (Auto) 0.1 Labs 48H Laboratory Tests 12/08/16 11:15: Anion Gap 9, White Blood Count 9.1, Red Blood Count 2.84L, Hemoglobin 9.0L, Hematocrit 27.6L, Mean Corpuscular Volume 97.0H, Mean Corpuscular Hemoglobin 31.8, Mean Corpuscular Hemoglobin Concent 32.8, Red Cell Distribution Width 13.7 , Platelet Count 214, Neutrophils (%) (Auto) 67.8H, Lymphocytes (%) (Auto) 17.7L , Monocytes (%) (Auto) 7.1H, Eosinophils (%) (Auto) 3.2H, Basophils (%) (Auto) 0.7, Neutrophils # (Auto) 6.2, Lymphocytes # (Auto) 1.9, Monocytes # (Auto) 0.7 , Eosinophils # (Auto) 0.3, Basophils # (Auto) 0.1, Blood Urea Nitrogen 26H, Creatinine 1.35H, Sodium Level 141, Potassium Level 4.6, Chloride Level 105, Carbon Dioxide Level 27, Calcium Level 8.4L, Fasting Glucose 86, Glomerular Filtration Rate 40.9, Large Unclassified Cells # 0.3, Large Unclassified Cells % 3.5 12/08/16 11:24: Urine Amorphous Sediment , Urine Appearance CLEAR, Urine Color YELLOW, Urine pH 6.0, Urine Specific [place] 1.008, Urine Protein NEGATIVE, Urine Glucose (UA) NEGATIVE, Urine Ketones NEGATIVE, Urine Urobilinogen 0.2, Urine Bilirubin NEGATIVE, Urine Leukocyte Esterase NEGATIVE, Urine Bacteria (Auto) NEGATIVE, Urine Blood 2+H, Urine Calcium Carbonate Cryst(Auto) , Urine Calcium Oxalate Cryst (Auto) , Urine Calcium Phosphate Kandi (Auto) , Urine Cellular Casts , Urine Cystine Crystals , Urine Granular Casts (Auto) , Urine Hyaline Casts (Auto ) 11, Urine Leucine Crystals , Urine Mucus (Auto) SMALL, Urine Nitrite NEGATIVE , Urine Oval Fat Bodies (Auto) , Urine RBC (Auto) 5H, Urine Renal Epithelial Cells , Urine Sperm (Auto) , Urine Squamous Epithelial Cells 0, Urine Transitional Epithelial Cells , Urine Trichomonas (Auto) , Urine Triple Phosphate Cryst (Auto) , Urine Tyrosine Crystals , Urine Uric Acid Crystals ( Auto) , Urine WBC (Auto) 0, Urine Waxy Casts (Auto) , Urine Yeast-Like Cells ( Auto) Microbiology Microbiology 12/08/16 Urine Culture, Received Pending 12/06/16 Urine Culture - Final, Complete 12/04/16 Urine Culture - Final, Complete Medications Medications Current Medications Acetaminophen (Tylenol Tab) 1,000 mg Q6HP PRN PO PAIN Last administered on t 09:12; Start 2/27/17 at 11:15; Stop 01/01/17 at 11:14 Alendronate Sodium (Fosamax) 70 mg @07 PO Last administered on 12/03/16 08: 12; Start 12/03/16 at 07:00; Stop 01/02/17 at 06:59 Amiodarone HCl (Pacerone, Cordarone) 200 mg DAILY PO Last administered on 08:36; Start 12/03/16 at 09:00; Stop 01/02/17 at 08:59 Aspirin (Ecotrin) 81 mg DAILY PO Last administered on 12/09/16 08:36; Start at 09:00; Stop 01/02/17 at 08:59 Bisoprolol Fumarate (Zebeta) 7.5 mg DAILY PO Last administered on 12/09/16 08: 36; Start 12/03/16 at 09:00; Stop 01/02/17 at 08:59 Calcium/Vitamin D (Oscal D) 500 mg DAILY PO Last administered on 12/09/16 08:36 ; Start 12/03/16 at 09:00; Stop 01/02/17 at 08:59 Diphenhydramine HCl (Benadryl) 25 mg TIDP PRN PO agitation; Start 12/02/16 at 21:00; Stop 12/03/16 at 09:08; Status DC Docusate Sodium (Colace) 100 mg BID PO Last administered on 12/09/16 08:36; Start 12/02/16 at 09:00; Stop 01/01/17 at 08:59 Fluoxetine HCl (PROzac) 20 mg DAILY PO Last administered on 12/09/16 08:36; Start 12/03/16 at 09:00; Stop 01/02/17 at 08:59 Haloperidol (Haldol) 2 mg Q6HP PRN IV AGITATION; Start 12/03/16 at 18:45; Stop 12/03/16 at 18:45; Status DC Home Med (Med Rec Complete!) ASDIRECTED XX ; Start 12/02/16 at 12:15; Stop at 12:15; Status DC Lidocaine (Lidoderm Patch) 1 patch DAILY TD Last administered on 12/09/16 08:37 ; Start 12/03/16 at 09:00; Stop 01/02/17 at 08:59 Lorazepam (Ativan) 0.5 mg Q6HP PRN IM AGITATION; Start 12/02/16 at 20:15; Stop 12/03/16 at 18:37; Status DC Lorazepam (Ativan) 0.5 mg Q6HP PRN IV AGITATION; Start 12/02/16 at 17:00; Stop 12/02/16 at 20:05; Status DC Lorazepam (Ativan) 0.5 mg Q6HP PRN IV AGITATION; Start 12/03/16 at 18:45; Stop 12/04/16 at 09:49; Status DC Magnesium Hydroxide (Milk Of Magnesia) 30 ml DAILYPRN PRN PO CONSTIPATION; Start 12/02/16 at 11:15; Stop 01/01/17 at 11:14 Miscellaneous (Unresolved Patient Own Med Order) SEE LABEL COMMENTS UNRESOLVED XX ; Start 12/03/16 at 00:01; Stop 12/04/16 at 12:19; Status DC Non-Formulary Medication ( See Comment Field Below ) REMOVE LIDODERM PATCH DAILY@21 XX Last administered on 12/07/16 21:00; Start 12/03/16 at 21:00; Stop 01/02/17 at 20:59 Ondansetron HCl (Zofran) 4 mg Q8HP PRN PO NAUSEA OR VOMITING; Start 12/08/16 at 11:00; Stop 01/07/17 at 10:59 Patient Own Medication (Patient'S Own Med) ENBREL 50MG/ ML AUTOINJECT... Q7D SQ Last administered on 12/03/16 18:12; Start 12/03/16 at 09:00; Stop 01/02/17 at 08:59 Polyethylene Glycol (Miralax) 1 pkt DAILY PRN PO CONSTIPATION; Start 12/02/16 at 11:15; Stop 01/01/17 at 11:14 Potassium Chloride (Micro-K Extencaps) 20 meq DAILY PO Last administered on 12/09 08:37; Start 12/05/16 at 09:00; Stop 01/04/17 at 08:59; Status Future hold Potassium Chloride (Micro-K Extencaps) 40 meq DAILY PO Last administered on 3/1 /17at 08:56; Start 12/04/16 at 09:00; Stop 12/04/16 at 13:28; Status DC Senna (Senokot) 1 tab BIDP PRN PO CONSTIPATION Last administered on 12/07/16 09 :28; Start 12/04/16 at 21:00; Stop 01/03/17 at 20:59 Senna (Senokot) 1 tab QHS PO ; Start 12/02/16 at 21:00; Stop 12/04/16 at 12:17; Status DC Torsemide (Demadex) 10 mg DAILY PO Last administered on 12/09/16 08:36; Start 12/03/16 at 09:00; Stop 01/02/17 at 08:59; Status Future hold Scheduled (Hair/Skin/Nails) 1 Tab Tab 1 TAB PO DAILY (Reported) Alendronate Sodium (Alendronate Sodium) 70 Mg Tab 70 MG PO QWEEK (Reported) TUESDAYS Amiodarone HCl (Amiodarone HCl) 200 Mg Tab 200 MG PO DAILY Aspirin (Aspirin EC) 81 Mg Tab 81 MG PO DAILY (Reported) Bisoprolol Fumarate (Bisoprolol Fumarate) 5 Mg Tab 7.5 MG PO DAILY Calcium/Vitamin D (Calcium Carbonate/D3 600-400 mg-Unit) 1 Tab Tab 1 TAB PO BID (Reported) Etanercept (Enbrel) 50 Mg/Ml Inj 50 MG SC QWEEK (Reported) TUESDAYS Fluoxetine Hcl (Fluoxetine HCl) 20 Mg Cap 20 MG PO DAILY Potassium Chloride (Klor-Con M10) 10 Meq Tabcr 10 MEQ PO DAILY Torsemide (Torsemide) 10 Mg Tab 10 MG PO DAILY Scheduled PRN (Acetaminophen) 500 Mg Cap 500 MG PO Q6H PRN PRN PAIN (Reported) Allergies Coded Allergies: Morphine (Unverified Adverse Reaction, Mild, NAUSEA,GI UPSET, 02/07/14) GINO FAJARDO MD Dec 09, 2016 11:03
== END 2016-12-09 12:20 | disposition home or self-care (01) | DRG 57 ==
LOC: M PM&R 10:58
PROVIDERS: ADMIT Physical Medicine & Rehabilitation; ATTEND Physical Medicine & Rehabilitation
DX: I69.220 Aphasia following other nontraumatic intracranial hemorrhage (principal); I50.22 Chronic systolic (congestive) heart failure; Q21.1 Atrial septal defect; I42.0 Dilated cardiomyopathy; N17.9 Acute kidney failure, unspecified; I48.0 Paroxysmal atrial fibrillation; I51.3 Intracardiac thrombosis, not elsewhere classified; M25.562 Pain in left knee; J44.9 Chronic obstructive pulmonary disease, unspecified; I67.1 Cerebral aneurysm, nonruptured; I34.0 Nonrheumatic mitral (valve) insufficiency; I69.298 Other sequelae of other nontraumatic intracranial hemorrhage; R45.1 Restlessness and agitation; E87.6 Hypokalemia; I34.1 Nonrheumatic mitral (valve) prolapse; D64.9 Anemia, unspecified; F41.9 Anxiety disorder, unspecified; M81.0 Age-related osteoporosis without current pathological fracture; M06.9 Rheumatoid arthritis, unspecified; I44.7 Left bundle-branch block, unspecified; Z96.652 Presence of left artificial knee joint; Z95.0 Presence of cardiac pacemaker; Z88.5 Allergy status to narcotic agent; Z79.82 Long term (current) use of aspirin; Z79.01 Long term (current) use of anticoagulants; Z87.891 Personal history of nicotine dependence; Z79.899 Other long term (current) drug therapy; Z96.651 Presence of right artificial knee joint

== ENCOUNTER 2016-12-11 10:32 | Outpatient (RCR) | payer MEDICARE ==
[~2016-12-11 10:32] MED LIST changes: +ACET500C PO; +ALEN70TA39 PO; +AMIO20TA PO; +ASPI81TA13 PO; +BISO5TAB5 PO; +CALC600T71 PO; +ENBR50IN2 SC; +FISH100049 PO; +FLUO20CA9 PO; +HAIRTAB5 PO; +POTA10CA PO; +TORS10TA3 PO
== END 2017-01-03 ==
LOC: M OT 10:32
PROVIDERS: ATTEND Family Medicine
DX: I69.220 Aphasia following other nontraumatic intracranial hemorrhage (principal)
CPT/HCPCS: 97165; G8990; G8991

== ENCOUNTER → 2017-02-05 | Outpatient (CLI) | payer MEDICARE ==
--- NOTE | 2017-02-05 15:52 | REP ---
Chest two views HISTORY: Shortness of breath Comparison: 09/05/2016 The lungs are clear. The cardiac silhouette is enlarged. The pulmonary vasculature is normal in appearance. There is an old compression fracture of a mid thoracic vertebral body. A cardiac pacemaker is present. IMPRESSION: Cardiomegaly.
== END ==
LOC: M CLY 14:41
PROVIDERS: ATTEND Nurse Practitioner Family
DX: R06.02 Shortness of breath (principal); I51.7 Cardiomegaly

== ENCOUNTER → 2017-02-05 | Outpatient (REF) | payer MEDICARE ==
[2017-02-05 16:22] LABS: MEAN CORPUSCULAR HEMOGLOBIN 31.7 pg (27.0-33.0); MEAN CORPUSCULAR HGB CONC 32.4 g/dl (32.0-36.5); MEAN CORPUSCULAR VOLUME 97.9 fl (80.0-96.0); RED CELL DISTRIBUTION WIDTH 13.2 % (11.5-14.5); WHITE BLOOD COUNT 13.7 K/mm3 (4.0-10.0)
[2017-02-05 16:23] LABS: ALBUMIN 3.6 GM/DL (3.2-5.2); CALCIUM LEVEL 8.7 MG/DL (8.8-10.2); CREATININE FOR GFR 2.03 MG/DL (0.55-1.02); GLOMERULAR FILTRATION RATE 25.6 (>39); PHOSPHORUS LEVEL 2.7 MG/DL (2.5-4.9); POTASSIUM SERUM 4.4 MEQ/L (3.5-5.1)
== END ==
LOC: M LABNEURO 15:32 → M LABDRAW1 15:32
PROVIDERS: ATTEND Nurse Practitioner Family
DX: R06.02 Shortness of breath (principal)

== ENCOUNTER → 2017-03-07 | Outpatient (REF) | payer MEDICARE ==
[2017-03-07 16:52] LABS: CALCIUM LEVEL 9.4 MG/DL (8.8-10.2); CREATININE FOR GFR 1.62 MG/DL (0.55-1.02); GLOMERULAR FILTRATION RATE 33.1 (>39); POTASSIUM SERUM 4.4 MEQ/L (3.5-5.1)
[2017-03-07 17:32] LABS: BASO # 0.1 K/mm3 (0.0-0.2); BASO % 0.5 % (0.0-1.0); EOS # 0.4 K/mm3 (0.0-0.50); LARGE UNSTAINED CELL # 0.4 K/mm3 (0.0-0.4); LARGE UNSTAINED CELL % 3.7 % (0.0-4.0); LYMPH # 1.1 K/mm3 (1.5-4.5); LYMPH % 10.2 % (24.0-44.0); MEAN CORPUSCULAR HEMOGLOBIN 31.9 pg (27.0-33.0); MEAN CORPUSCULAR HGB CONC 32.5 g/dl (32.0-36.5); MONO # 0.8 K/mm3 (0.0-0.8); MONO % 7.7 % (0.0-5.0); NEUTROPHILS # 7.8 K/mm3 (1.8-7.7); NEUTROPHILS % 73.8 % (36.0-66.0); PLATELET COUNT, AUTOMATED 224 k/mm3 (150-450); RED CELL DISTRIBUTION WIDTH 13.7 % (11.5-14.5); WHITE BLOOD COUNT 10.6 K/mm3 (4.0-10.0)
== END ==
LOC: M SFHCCLAY 12:23
PROVIDERS: ATTEND Family Medicine
DX: R05 Cough (principal); I50.30 Unspecified diastolic (congestive) heart failure

== ENCOUNTER → 2017-03-07 | Outpatient (CLI) | payer MEDICARE ==
--- NOTE | 2017-03-07 14:07 | REP ---
CHEST, TWO VIEWS: Two views of the chest are performed. There is no evidence of acute infiltrate. There is mild diffuse interstitial fibrosis. There is mild cardiomegaly. The mediastinal silhouette is unchanged with some tortuosity of the thoracic aorta. Left pacemaker is unchanged. There are degenerative changes of the spine with a stable mild compression deformity of an upper thoracic vertebral body. IMPRESSION: Stable chronic findings without evidence of acute pulmonary disease.
== END ==
LOC: M CLY 12:43
PROVIDERS: ATTEND Family Medicine
DX: R05 Cough (principal); J84.10 Pulmonary fibrosis, unspecified; I51.7 Cardiomegaly; Z95.0 Presence of cardiac pacemaker; I50.30 Unspecified diastolic (congestive) heart failure

== ENCOUNTER → 2017-05-28 | Outpatient (REF) | payer MEDICARE ==
[~2017-05-28] MED LIST changes: +AMIO200T PO; -AMIO20TA PO; -ASPI81TA13 PO; +ASPI81TA24 PO; +CALC1TAB5 PO; -CALC600T71 PO; +FLUO20CA19 PO; -FLUO20CA9 PO
[2017-05-28 19:01] LABS: CREATININE FOR GFR 1.38 MG/DL (0.55-1.02); GLOMERULAR FILTRATION RATE 39.8 (>39)
== END ==
LOC: M LAB REF 11:00
PROVIDERS: ATTEND Neurological Surgery
DX: I67.1 Cerebral aneurysm, nonruptured (principal)

== ENCOUNTER → 2017-07-24 | Outpatient (REF) | payer MEDICARE ==
[2017-07-24 16:29] LABS: BASO # 0.1 10^3/uL (0.0-0.2); BASO % 0.5 % (0.0-1.0); EOS # 0.4 10^3/uL (0.0-0.50); EOS % 3.4 % (0.0-3.0); IMMATURE GRANULOCYTE % 0.3 % (0-0); LYMPH # 2.2 10^3/uL (1.5-4.5); LYMPH % 19.2 % (24.0-44.0); MEAN CORPUSCULAR HEMOGLOBIN 30.7 pg (27.0-33.0); MEAN CORPUSCULAR HGB CONC 32.1 g/dl (32.0-36.5); MEAN CORPUSCULAR VOLUME 95.7 fl (80.0-96.0); MONO # 0.9 10^3/uL (0.0-0.8); MONO % 8.3 % (0.0-5.0); NEUTROPHILS # 7.7 10^3/uL (1.8-7.7); NEUTROPHILS % 68.3 % (36.0-66.0); PLATELET COUNT, AUTOMATED 208 10^3/uL (150-450); RED CELL DISTRIBUTION WIDTH 13.8 % (11.5-14.5); WHITE BLOOD COUNT 11.2 10^3/uL (4.0-10.0)
[2017-07-24 17:56] LABS: ALBUMIN 3.6 GM/DL (3.2-5.2); ALBUMIN/GLOBULIN RATIO 0.8 (1.00-1.93); BILIRUBIN,TOTAL 0.2 MG/DL (0.2-1.0); CALCIUM LEVEL 8.8 MG/DL (8.8-10.2); CREATININE FOR GFR 1.23 MG/DL (0.55-1.02); GLOMERULAR FILTRATION RATE 45.4 (>39); POTASSIUM SERUM 4.3 MEQ/L (3.5-5.1); TOTAL PROTEIN 8.1 GM/DL (6.4-8.2)
== END ==
LOC: M LABDRAW1 14:22
PROVIDERS: ATTEND Internal Medicine Rheumatology
DX: Z51.81 Encounter for therapeutic drug level monitoring (principal); Z79.899 Other long term (current) drug therapy; M81.0 Age-related osteoporosis without current pathological fracture; N18.3 Chronic kidney disease, stage 3 (moderate); M05.79 Rheumatoid arthritis with rheumatoid factor of multiple sites without organ or systems involvement

== ENCOUNTER → 2017-11-20 | Outpatient (REF) | payer MEDICARE ==
[2017-11-20 12:37] LABS: HEMATOCRIT 33.2 % (36.0-47.0); HEMOGLOBIN 10.7 g/dl (12.0-16.0); MEAN CORPUSCULAR HEMOGLOBIN 30.6 pg (27.0-33.0); MEAN CORPUSCULAR HGB CONC 32.2 g/dl (32.0-36.5); MEAN CORPUSCULAR VOLUME 94.9 fl (80.0-96.0); PLATELET COUNT, AUTOMATED 268 10^3/uL (150-450); RED CELL DISTRIBUTION WIDTH 13.3 % (11.5-14.5)
[2017-11-20 13:03] LABS: ANION GAP 8 MEQ/L (8-16); BLOOD UREA NITROGEN 35 MG/DL (7-18); CALCIUM LEVEL 8.9 MG/DL (8.8-10.2); CARBON DIOXIDE LEVEL 26 MEQ/L (21-32); CHLORIDE LEVEL 107 MEQ/L (98-107); CREATININE FOR GFR 1.18 MG/DL (0.55-1.30); GLOMERULAR FILTRATION RATE 47.7 (>39); GLUCOSE, FASTING 137 MG/DL (70-100); NT-PRO BNP 3263 PG/ML (<125); POTASSIUM SERUM 4.3 MEQ/L (3.5-5.1); SODIUM LEVEL 141 MEQ/L (136-145)
== END ==
LOC: M LABDRAWC 11:51
DX: I47.2 Ventricular tachycardia (principal); I67.1 Cerebral aneurysm, nonruptured; Z79.899 Other long term (current) drug therapy
CPT/HCPCS: 80048

== ENCOUNTER → 2017-11-20 | Outpatient (REF) | payer MEDICARE ==
[2017-11-20 12:56] LABS: BLOOD UREA NITROGEN 34 MG/DL (7-18)
[2017-11-20 12:56] LABS: CREATININE FOR GFR 1.18 MG/DL (0.55-1.30); GLOMERULAR FILTRATION RATE 47.7 (>39)
== END ==
LOC: M LABDRAWC 11:53
DX: I67.1 Cerebral aneurysm, nonruptured (principal)

== ENCOUNTER 2018-02-28 15:52 | Inpatient (IN) | payer MEDICARE ==
[2018-02-28 16:33] LABS: BASO % 0.1 % (0.0-1.0); EOS # 0.2 10^3/uL (0.0-0.50); EOS % 2.9 % (0.0-3.0); HEMOGLOBIN 11.3 g/dl (12.0-15.5); IMMATURE GRANULOCYTE % 0.4 % (0-3.0); LYMPH # 1.8 10^3/uL (1.5-4.5); LYMPH % 21.9 % (24.0-44.0); MEAN CORPUSCULAR HEMOGLOBIN 31.7 pg (27.0-33.0); MEAN CORPUSCULAR HGB CONC 33.2 g/dl (32.0-36.5); MEAN CORPUSCULAR VOLUME 95.2 fl (80.0-96.0); MONO # 0.3 10^3/uL (0.0-0.8); MONO % 3.5 % (0.0-5.0); NEUTROPHILS # 5.8 10^3/uL (1.8-7.7); NEUTROPHILS % 71.2 % (36.0-66.0); PLATELET COUNT, AUTOMATED 227 10^3/uL (150-450); RED BLOOD COUNT 3.57 10^6/uL (4.00-5.40); RED CELL DISTRIBUTION WIDTH 13.2 % (11.5-14.5); WHITE BLOOD COUNT 8.1 10^3/uL (4.0-10.0)
[2018-02-28 16:50] LABS: ANION GAP 7 MEQ/L (8-16); BLOOD UREA NITROGEN 25 MG/DL (7-18); CALCIUM LEVEL 8.6 MG/DL (8.8-10.2); CARBON DIOXIDE LEVEL 26 MEQ/L (21-32); CHLORIDE LEVEL 107 MEQ/L (98-107); CREATININE FOR GFR 1.03 MG/DL (0.55-1.30); GLOMERULAR FILTRATION RATE 55.6 (>39); GLUCOSE, FASTING 123 MG/DL (70-100); POTASSIUM SERUM 4.3 MEQ/L (3.5-5.1); SODIUM LEVEL 140 MEQ/L (136-145)
[2018-02-28] MEDS ORDERED: ISOVUE-370 76% 100ML VIAL (Q9967) As Ordered (16:58)
[2018-02-28 17:05] LABS: INR 0.97
[2018-02-28 17:06] LABS: PARTIAL THROMBOPLASTIN TIME 24.5 SECONDS (26.8-37.9)
[2018-02-28 20:15] LABS: HEMATOCRIT 33.2 % (36.0-47.0); HEMOGLOBIN 11.1 g/dl (12.0-15.5)
[2018-02-28] MEDS ORDERED: ONDANSETRON 4MG/2ML VIAL (J2405) IV (22:45)
[2018-03-01] MEDS: SENOKOT S TAB PO ×3 (00:07→20:40)
[2018-03-01] MEDS: CALCIUM/VITAMIN D 500 MG TAB PO ×3 (01:28→20:40)
[2018-03-01 04:23] LABS: HEMATOCRIT 32.6 % (36.0-47.0); HEMOGLOBIN 10.8 g/dl (12.0-15.5); MEAN CORPUSCULAR HEMOGLOBIN 31.5 pg (27.0-33.0); MEAN CORPUSCULAR HGB CONC 33.1 g/dl (32.0-36.5); PLATELET COUNT, AUTOMATED 218 10^3/uL (150-450); RED BLOOD COUNT 3.43 10^6/uL (4.00-5.40); RED CELL DISTRIBUTION WIDTH 13.2 % (11.5-14.5); WHITE BLOOD COUNT 10.2 10^3/uL (4.0-10.0)
[2018-03-01 04:49] LABS: ALBUMIN/GLOBULIN RATIO 0.65 (1.00-1.93); ALKALINE PHOSPHATASE 75 U/L (45-117); ALT/SGPT 18 U/L (12-78); AST/SGOT 20 U/L (7-37); BILIRUBIN,DIRECT < 0.1 MG/DL (0.0-0.2); BILIRUBIN,TOTAL 0.2 MG/DL (0.2-1.0); CK-MB VALUE MASS < 1.0 NG/ML (<3.6); CPK CREATINE PHOSPHOKINASE 27 U/L (26-192); MAGNESIUM LEVEL 2.1 MG/DL (1.8-2.4); TOTAL PROTEIN 7.6 GM/DL (6.4-8.2); TROPONIN I 0.03 NG/ML (< 0.10)
[2018-03-01] MEDS: METOPROLOL SUCC (TopROL XL) 100MG *XL* TAB PO (08:21)
[2018-03-01] MEDS: PERCOCET 5MG/325MG TAB PO ×3 (08:22→17:48)
[2018-03-01 08:40] LABS: CK-MB VALUE MASS < 1.0 NG/ML (<3.6); CPK CREATINE PHOSPHOKINASE 23 U/L (26-192); MB/CK RELATIVE INDEX 4.34 (< OR =4); TROPONIN I 0.03 NG/ML (< 0.10)
[2018-03-01] MEDS: cefTRIAXone SOD 1 GM in D5W MINI-BAG PLUS 50 ML IV (12:14)
[2018-03-01 16:56] LABS: HEMATOCRIT 31.6 % (36.0-47.0); HEMOGLOBIN 10.6 g/dl (12.0-15.5); MEAN CORPUSCULAR HEMOGLOBIN 32.1 pg (27.0-33.0); MEAN CORPUSCULAR HGB CONC 33.5 g/dl (32.0-36.5); MEAN CORPUSCULAR VOLUME 95.8 fl (80.0-96.0); PLATELET COUNT, AUTOMATED 207 10^3/uL (150-450); RED CELL DISTRIBUTION WIDTH 13.4 % (11.5-14.5); WHITE BLOOD COUNT 11.7 10^3/uL (4.0-10.0)
[2018-03-01] MEDS: ACETAMINOPHEN TAB 650MG DOSE (2X325MG) PO (17:00)
[2018-03-02 05:00] LABS: HEMATOCRIT 29.7 % (36.0-47.0); HEMOGLOBIN 9.9 g/dl (12.0-15.5); MEAN CORPUSCULAR HEMOGLOBIN 31.6 pg (27.0-33.0); MEAN CORPUSCULAR HGB CONC 33.3 g/dl (32.0-36.5); MEAN CORPUSCULAR VOLUME 94.9 fl (80.0-96.0); PLATELET COUNT, AUTOMATED 194 10^3/uL (150-450); RED BLOOD COUNT 3.13 10^6/uL (4.00-5.40); RED CELL DISTRIBUTION WIDTH 13.5 % (11.5-14.5); WHITE BLOOD COUNT 9.8 10^3/uL (4.0-10.0)
[2018-03-02 05:20] LABS: ANION GAP 5 MEQ/L (8-16); BLOOD UREA NITROGEN 22 MG/DL (7-18); CALCIUM LEVEL 8.9 MG/DL (8.8-10.2); CARBON DIOXIDE LEVEL 27 MEQ/L (21-32); CHLORIDE LEVEL 109 MEQ/L (98-107); CREATININE FOR GFR 1.17 MG/DL (0.55-1.30); GLUCOSE, FASTING 93 MG/DL (70-100); MAGNESIUM LEVEL 2.2 MG/DL (1.8-2.4); POTASSIUM SERUM 4.1 MEQ/L (3.5-5.1); SODIUM LEVEL 141 MEQ/L (136-145)
[2018-03-02] MEDS: SENOKOT S TAB PO (09:17)
[2018-03-02] MEDS: CALCIUM/VITAMIN D 500 MG TAB PO (09:18)
[2018-03-02] MEDS: METOPROLOL SUCC (TopROL XL) 100MG *XL* TAB PO (09:18)
[2018-03-02] MEDS: cefTRIAXone SOD 1 GM in D5W MINI-BAG PLUS 50 ML IV (12:02)
[2018-03-02] MEDS: CEPHALEXIN 500 MG CAP PO (13:23)
== END 2018-03-02 14:46 | disposition home or self-care (01) | DRG 690 ==
LOC: M ED 15:52 → M ED INP 22:31 → M PCU 23:38
DX: N30.01 Acute cystitis with hematuria (principal); I50.22 Chronic systolic (congestive) heart failure; I47.0 Re-entry ventricular arrhythmia; I48.91 Unspecified atrial fibrillation; B96.29 Other Escherichia coli [E. coli] as the cause of diseases classified elsewhere; Z95.810 Presence of automatic (implantable) cardiac defibrillator; Z79.899 Other long term (current) drug therapy; Z86.73 Personal history of transient ischemic attack (TIA), and cerebral infarction without residual deficits; Z79.82 Long term (current) use of aspirin; Z88.5 Allergy status to narcotic agent; M19.90 Unspecified osteoarthritis, unspecified site; M06.9 Rheumatoid arthritis, unspecified; Z96.652 Presence of left artificial knee joint; I34.0 Nonrheumatic mitral (valve) insufficiency; I67.1 Cerebral aneurysm, nonruptured; Z87.891 Personal history of nicotine dependence; J44.9 Chronic obstructive pulmonary disease, unspecified

== ENCOUNTER → 2018-03-09 | Outpatient (REF) | payer MEDICARE ==
[2018-03-10 11:39] LABS: APPEARANCE, URINE CLEAR (CLEAR); BACTERIA, URINE AUTO NEGATIVE (NEGATIVE); BILIRUBIN, URINE AUTO NEGATIVE (NEGATIVE); BLOOD, URINE BLOOD 1+ (NEGATIVE); COLOR, URINE YELLOW (YELLOW); GLUCOSE, URINE (UA) AUTO NEGATIVE (NEGATIVE); KETONE, URINE AUTO NEGATIVE (NEGATIVE); LEUKOCYTE ESTERASE, URINE AUTO NEGATIVE (NEGATIVE); MUCUS, URINE SMALL (NEGATIVE); NITRITE, URINE AUTO NEGATIVE (NEGATIVE); PROTEIN, URINE AUTO NEGATIVE (NEGATIVE); RBC, URINE AUTO 1 /HPF (0-3); SPECIFIC GRAVITY URINE AUTO 1.014 (1.002-1.035); SQUAMOUS EPITHELIAL CELL UR AU 0 /HPF (0-6); UROBILINOGEN, URINE AUTO 0.2 mg/dL (0.0-2.0); WBC, URINE AUTO 0 /HPF (0-3)
== END ==
LOC: M SMT 03-10 11:20
DX: R31.0 Gross hematuria (principal)
CPT/HCPCS: 81001

== ENCOUNTER → 2018-03-16 | Outpatient (REF) | payer MEDICARE | LOC: M SMT 13:01 | DX: R31.0 Gross hematuria (principal) | CPT/HCPCS: 88108 ==

== ENCOUNTER → 2018-03-18 | Outpatient (REF) | payer MEDICARE ==
[2018-03-18 16:44] LABS: BASO % 0.3 % (0.0-1.0); EOS # 0.3 10^3/uL (0.0-0.50); EOS % 3.6 % (0.0-3.0); HEMATOCRIT 33.5 % (36.0-47.0); HEMOGLOBIN 10.9 g/dl (12.0-15.5); IMMATURE GRANULOCYTE % 0.4 % (0-3.0); LYMPH # 1.4 10^3/uL (1.5-4.5); LYMPH % 19.8 % (24.0-44.0); MEAN CORPUSCULAR HEMOGLOBIN 31.8 pg (27.0-33.0); MEAN CORPUSCULAR HGB CONC 32.5 g/dl (32.0-36.5); MEAN CORPUSCULAR VOLUME 97.7 fl (80.0-96.0); MONO # 0.3 10^3/uL (0.0-0.8); MONO % 4.7 % (0.0-5.0); NEUTROPHILS # 5.2 10^3/uL (1.8-7.7); NEUTROPHILS % 71.2 % (36.0-66.0); PLATELET COUNT, AUTOMATED 218 10^3/uL (150-450); RED BLOOD COUNT 3.43 10^6/uL (4.00-5.40); RED CELL DISTRIBUTION WIDTH 13.3 % (11.5-14.5); WHITE BLOOD COUNT 7.3 10^3/uL (4.0-10.0)
[2018-03-18 17:06] LABS: ANION GAP 5 MEQ/L (8-16); BLOOD UREA NITROGEN 35 MG/DL (7-18); CARBON DIOXIDE LEVEL 27 MEQ/L (21-32); CHLORIDE LEVEL 106 MEQ/L (98-107); GLUCOSE, FASTING 103 MG/DL (70-100); POTASSIUM SERUM 4.6 MEQ/L (3.5-5.1); SODIUM LEVEL 138 MEQ/L (136-145)
== END ==
LOC: M LABDRAWC 16:16
DX: I42.9 Cardiomyopathy, unspecified (principal)
CPT/HCPCS: 80048

== ENCOUNTER → 2018-06-04 | Outpatient (REF) | payer MEDICARE ==
[2018-06-04 16:40] LABS: HEMATOCRIT 32.3 % (36.0-47.0); HEMOGLOBIN 10.5 g/dl (12.0-15.5); MEAN CORPUSCULAR HEMOGLOBIN 31.1 pg (27.0-33.0); MEAN CORPUSCULAR HGB CONC 32.5 g/dl (32.0-36.5); MEAN CORPUSCULAR VOLUME 95.6 fl (80.0-96.0); PLATELET COUNT, AUTOMATED 246 10^3/uL (150-450); RED BLOOD COUNT 3.38 10^6/uL (4.00-5.40); RED CELL DISTRIBUTION WIDTH 13.2 % (11.5-14.5); WHITE BLOOD COUNT 7.5 10^3/uL (4.0-10.0)
[2018-06-04 16:56] LABS: ANION GAP 5 MEQ/L (8-16); BLOOD UREA NITROGEN 25 MG/DL (7-18); CALCIUM LEVEL 8.9 MG/DL (8.8-10.2); CARBON DIOXIDE LEVEL 28 MEQ/L (21-32); CHLORIDE LEVEL 106 MEQ/L (98-107); GLOMERULAR FILTRATION RATE 51.5 (>39); GLUCOSE, FASTING 104 MG/DL (70-100); POTASSIUM SERUM 4.4 MEQ/L (3.5-5.1); SODIUM LEVEL 139 MEQ/L (136-145)
== END ==
LOC: M LABDRAWC 16:16
DX: I48.91 Unspecified atrial fibrillation (principal)
CPT/HCPCS: 80048

== ENCOUNTER → 2018-08-14 | Outpatient (CLI) | payer MEDICARE | LOC: M LRY 14:21 | DX: M81.0 Age-related osteoporosis without current pathological fracture (principal); M05.79 Rheumatoid arthritis with rheumatoid factor of multiple sites without organ or systems involvement | CPT/HCPCS: 73130; 84550 ==

== ENCOUNTER → 2018-08-14 | Outpatient (REF) | payer MEDICARE ==
[2018-08-14 17:02] LABS: ALBUMIN 3.6 GM/DL (3.2-5.2); ALBUMIN/GLOBULIN RATIO 0.75 (1.00-1.93); ALKALINE PHOSPHATASE 91 U/L (45-117); ALT/SGPT 15 U/L (12-78); ANION GAP 8 MEQ/L (8-16); AST/SGOT 19 U/L (7-37); BILIRUBIN,TOTAL 0.3 MG/DL (0.2-1.0); BLOOD UREA NITROGEN 28 MG/DL (7-18); C REACTIVE PROTEIN QUANTITATIV 3.28 MG/DL (0.00-0.30); CALCIUM LEVEL 9.6 MG/DL (8.8-10.2); CARBON DIOXIDE LEVEL 25 MEQ/L (21-32); CHLORIDE LEVEL 103 MEQ/L (98-107); CREATININE FOR GFR 1.15 MG/DL (0.55-1.30); GLUCOSE, FASTING 110 MG/DL (70-100); POTASSIUM SERUM 4.6 MEQ/L (3.5-5.1); SODIUM LEVEL 136 MEQ/L (136-145); TOTAL PROTEIN 8.4 GM/DL (6.4-8.2)
[2018-08-14 17:07] LABS: URIC ACID 6.5 MG/DL (2.6-6.0)
[2018-08-14 17:24] LABS: BASO % 0.4 % (0.0-1.0); EOS # 0.2 10^3/uL (0.0-0.50); EOS % 2.7 % (0.0-3.0); HEMATOCRIT 33.6 % (36.0-47.0); HEMOGLOBIN 10.8 g/dl (12.0-15.5); IMMATURE GRANULOCYTE % 0.4 % (0-3.0); LYMPH # 1.7 10^3/uL (1.5-4.5); LYMPH % 19.7 % (24.0-44.0); MEAN CORPUSCULAR HEMOGLOBIN 30.2 pg (27.0-33.0); MEAN CORPUSCULAR HGB CONC 32.1 g/dl (32.0-36.5); MEAN CORPUSCULAR VOLUME 93.9 fl (80.0-96.0); MONO # 0.4 10^3/uL (0.0-0.8); MONO % 5.2 % (0.0-5.0); NEUTROPHILS % 71.6 % (36.0-66.0); PLATELET COUNT, AUTOMATED 287 10^3/uL (150-450); RED BLOOD COUNT 3.58 10^6/uL (4.00-5.40); RED CELL DISTRIBUTION WIDTH 13.2 % (11.5-14.5); WHITE BLOOD COUNT 8.4 10^3/uL (4.0-10.0)
[2018-08-14 18:00] LABS: ERYTHROCYTE SEDIMENTATION RATE 89 mm/hr (0-30)
[2018-08-16 08:46] LABS: HEPATITIS B CORE ANTIBODY IGG Negative (Negative)
[2018-08-17 10:35] LABS: HEPATITIS B SURFACE ANTIBODY NEGATIVE (POSITIVE)
[2018-08-17 10:43] LABS: HEPATITIS B SURFACE ANTIGEN NEGATIVE (NEGATIVE)
[2018-08-17 11:09] LABS: HEPATITIS C VIRUS ABY INDEX 0.1 INDEX (<0.8)
== END ==
LOC: M SFHCLERA 13:57
DX: M05.79 Rheumatoid arthritis with rheumatoid factor of multiple sites without organ or systems involvement (principal)
CPT/HCPCS: 84550

== ENCOUNTER → 2018-09-23 | Outpatient (REF) | payer MEDICARE ==
[~2018-09-23] MED LIST changes: -ALEN70TA39 PO; +ALEN70TA57 PO; +CEPH500C PO; +CLOP75TA2 PO; +KLOR10TA76 PO; +METO1TAB33 PO; -POTA10CA PO
[2018-09-23 16:14] LABS: BASO % 0.3 % (0.0-1.0); EOS # 0.2 10^3/uL (0.0-0.50); EOS % 3.2 % (0.0-3.0); HEMATOCRIT 35.7 % (36.0-47.0); HEMOGLOBIN 11.3 g/dl (12.0-15.5); LYMPH # 1.7 10^3/uL (1.5-4.5); LYMPH % 22.3 % (24.0-44.0); MEAN CORPUSCULAR HEMOGLOBIN 30.3 pg (27.0-33.0); MEAN CORPUSCULAR HGB CONC 31.7 g/dl (32.0-36.5); MEAN CORPUSCULAR VOLUME 95.7 fl (80.0-96.0); MONO # 0.5 10^3/uL (0.0-0.8); MONO % 6.6 % (0.0-5.0); NEUTROPHILS % 67.3 % (36.0-66.0); PLATELET COUNT, AUTOMATED 219 10^3/uL (150-450); RED BLOOD COUNT 3.73 10^6/uL (4.00-5.40); WHITE BLOOD COUNT 7.4 10^3/uL (4.0-10.0)
[2018-09-23 16:15] LABS: ALBUMIN 3.7 GM/DL (3.2-5.2); BILIRUBIN,TOTAL 0.3 MG/DL (0.2-1.0); C REACTIVE PROTEIN QUANTITATIV 0.72 MG/DL (0.00-0.30); CALCIUM LEVEL 8.8 MG/DL (8.8-10.2); CREATININE FOR GFR 1.11 MG/DL (0.55-1.30); POTASSIUM SERUM 4.6 MEQ/L (3.5-5.1); TOTAL PROTEIN 8.4 GM/DL (6.4-8.2)
[2018-09-23 17:44] LABS: ERYTHROCYTE SEDIMENTATION RATE 70 mm/hr (0-30)
== END ==
LOC: M SFHCPLAZ 12:09 → M LABDRAW1 12:09
PROVIDERS: ATTEND Internal Medicine Rheumatology
DX: M05.79 Rheumatoid arthritis with rheumatoid factor of multiple sites without organ or systems involvement (principal)
CPT/HCPCS: 36415; 80053; 85025; 85652; 86140; G0463

== ENCOUNTER → 2018-12-14 | Outpatient (REF) | payer MEDICARE | LOC: M SFHCPLAZ 12:02 | PROVIDERS: ATTEND Internal Medicine Rheumatology | DX: M06.9 Rheumatoid arthritis, unspecified (principal); Z53.8 Procedure and treatment not carried out for other reasons ==

== ENCOUNTER → 2018-12-17 | Outpatient (REF) | payer MEDICARE ==
[2018-12-17 17:25] LABS: ALBUMIN 3.5 GM/DL (3.2-5.2); BILIRUBIN,TOTAL 0.4 MG/DL (0.2-1.0); C REACTIVE PROTEIN QUANTITATIV 0.97 MG/DL (0.00-0.30); CALCIUM LEVEL 8.4 MG/DL (8.8-10.2); CREATININE FOR GFR 1.02 MG/DL (0.55-1.30); GLOMERULAR FILTRATION RATE 56.2 (>39); POTASSIUM SERUM 4.1 MEQ/L (3.5-5.1)
[2018-12-17 17:26] LABS: BASO % 0.3 % (0.0-1.0); EOS # 0.3 10^3/uL (0.0-0.50); EOS % 4.3 % (0.0-3.0); HEMATOCRIT 33.2 % (36.0-47.0); HEMOGLOBIN 10.8 g/dl (12.0-15.5); LYMPH % 29.6 % (24.0-44.0); MEAN CORPUSCULAR HEMOGLOBIN 31.5 pg (27.0-33.0); MEAN CORPUSCULAR HGB CONC 32.5 g/dl (32.0-36.5); MEAN CORPUSCULAR VOLUME 96.8 fl (80.0-96.0); MONO # 0.5 10^3/uL (0.0-0.8); MONO % 7.4 % (0.0-5.0); NEUTROPHILS # 3.9 10^3/uL (1.8-7.7); NEUTROPHILS % 58.1 % (36.0-66.0); PLATELET COUNT, AUTOMATED 202 10^3/uL (150-450); RED BLOOD COUNT 3.43 10^6/uL (4.00-5.40); WHITE BLOOD COUNT 6.8 10^3/uL (4.0-10.0)
== END ==
LOC: M SFHCPLAZ 13:14
PROVIDERS: ATTEND Internal Medicine Rheumatology
DX: M06.9 Rheumatoid arthritis, unspecified (principal)

== ENCOUNTER → 2018-12-21 | Outpatient (REF) | payer MEDICARE | LOC: M SFHCPLAZ 10:58 | PROVIDERS: ATTEND Internal Medicine Rheumatology | DX: M06.9 Rheumatoid arthritis, unspecified (principal) ==

== ENCOUNTER → 2019-05-05 | Outpatient (REF) | payer MEDICARE ==
[~2019-05-05] MED LIST changes: -/WARF25TA; -/WARF25TA PO; -ALEN70TA57 PO; +ALEN70TA74 PO; +COUM1TAB18; +COUM1TAB18 PO; -ENBR50IN2 SC; +ETAN50SY SC
[2019-05-06 11:47] LABS: BASO # 0.1 10^3/uL (0.0-0.2); BASO % 1.1 % (0.0-1.0); EOS # 0.3 10^3/uL (0.0-0.50); EOS % 4.1 % (0.0-3.0); HEMATOCRIT 34.5 % (36.0-47.0); HEMOGLOBIN 11.3 g/dl (12.0-15.5); LYMPH % 24.4 % (24.0-44.0); MEAN CORPUSCULAR HEMOGLOBIN 32.6 pg (27.0-33.0); MEAN CORPUSCULAR HGB CONC 32.8 g/dl (32.0-36.5); MEAN CORPUSCULAR VOLUME 99.4 fl (80.0-96.0); MONO # 0.5 10^3/uL (0.0-0.8); MONO % 6.2 % (0.0-5.0); NEUTROPHILS # 5.3 10^3/uL (1.8-7.7); PLATELET COUNT, AUTOMATED 246 10^3/uL (150-450); RED BLOOD COUNT 3.47 10^6/uL (4.00-5.40); WHITE BLOOD COUNT 8.3 10^3/uL (4.0-10.0)
[2019-05-06 11:54] LABS: ALBUMIN 3.5 GM/DL (3.2-5.2); BILIRUBIN,TOTAL 0.3 MG/DL (0.2-1.0); C REACTIVE PROTEIN QUANTITATIV 1.19 MG/DL (0.00-0.30); CALCIUM LEVEL 9.1 MG/DL (8.8-10.2); CREATININE FOR GFR 1.25 MG/DL (0.55-1.30); GLOMERULAR FILTRATION RATE 44.4 (>39); POTASSIUM SERUM 4.8 MEQ/L (3.5-5.1); TOTAL PROTEIN 8.3 GM/DL (6.4-8.2)
[2019-05-06 12:17] LABS: ERYTHROCYTE SEDIMENTATION RATE 69 mm/hr (0-30)
== END ==
LOC: M SFHCCLAY 14:14
PROVIDERS: ATTEND Family Medicine
DX: M06.9 Rheumatoid arthritis, unspecified (principal)
CPT/HCPCS: 36415; 80053; 85025; 85652; 86140; G0463

== ENCOUNTER → 2019-07-08 | Outpatient (REF) | payer MEDICARE ==
[~2019-07-08] MED LIST changes: -BISO5TAB5 PO; +BISO5TAB9 PO
[2019-07-09 12:17] LABS: BASO # 0.1 10^3/uL (0.0-0.2); BASO % 0.6 % (0.0-1.0); EOS # 0.2 10^3/uL (0.0-0.5); EOS % 2.3 % (0.0-3.0); HEMATOCRIT 32.8 % (36.0-47.0); HEMOGLOBIN 10.9 g/dl (12.0-15.5); LYMPH # 2.4 10^3/uL (1.5-5.0); LYMPH % 29.7 % (24.0-44.0); MEAN CORPUSCULAR HEMOGLOBIN 33.2 pg (27.0-33.0); MEAN CORPUSCULAR HGB CONC 33.2 g/dl (32.0-36.5); MONO # 0.7 10^3/uL (0.0-0.8); MONO % 9.1 % (0.0-5.0); NEUTROPHILS # 4.6 10^3/uL (1.5-8.5); PLATELET COUNT, AUTOMATED 217 10^3/uL (150-450); RED BLOOD COUNT 3.28 10^6/uL (4.00-5.40); WHITE BLOOD COUNT 7.9 10^3/uL (4.0-10.0)
[2019-07-09 12:54] LABS: ALBUMIN 4.1 GM/DL (3.2-5.2); BILIRUBIN,TOTAL 0.4 MG/DL (0.2-1.0); C REACTIVE PROTEIN QUANTITATIV 0.32 MG/DL (0.00-0.30); CALCIUM LEVEL 9.6 MG/DL (8.8-10.2); CHOLESTEROL RISK RATIO 3.711 (<5); CREATININE FOR GFR 1.39 MG/DL (0.55-1.30); GLOMERULAR FILTRATION RATE 39.2 (>39); POTASSIUM SERUM 4.7 MEQ/L (3.5-5.1); TOTAL PROTEIN 8.3 GM/DL (6.4-8.2)
[2019-07-09 13:07] LABS: ERYTHROCYTE SEDIMENTATION RATE 47 mm/hr (0-30)
== END ==
LOC: M SFHCCLAY 13:55
PROVIDERS: ATTEND Internal Medicine Rheumatology
DX: M06.9 Rheumatoid arthritis, unspecified (principal); I50.9 Heart failure, unspecified
CPT/HCPCS: 80053; 80061; 85025; 85652; 86140; G0463

== ENCOUNTER → 2019-07-14 | Outpatient (CLI) | payer MEDICARE ==
--- NOTE | 2019-07-14 11:07 | REP ---
CHEST, TWO VIEWS: Two views of the chest are performed and compared to a prior study of 03/07/2017. There is mild cardiomegaly. No acute infiltrate or pulmonary edema. There is chronic blunting of the right costophrenic angle. There is calcification and tortuosity of the thoracic aorta. Mediastinal silhouette is unchanged. Left pacemaker is again noted unchanged. There is osteopenia. There is a compression deformity of the mid thoracic vertebral body, which is stable. IMPRESSION: Mild cardiomegaly. No acute pulmonary disease. Electronically Signed by Ishan Wagner MD 07/14/2019 06:23 P
== END ==
LOC: M CLY 10:32
PROVIDERS: ATTEND Family Medicine
DX: I51.7 Cardiomegaly (principal); R05 Cough; R06.02 Shortness of breath; M85.88 Other specified disorders of bone density and structure, other site; Z95.0 Presence of cardiac pacemaker
CPT/HCPCS: 71046; G0463